=== PATIENT | male | born 1975 | race Asian ===

== ENCOUNTER 2016-05-04 06:36 | Inpatient (IN) | payer MEDICARE, MEDICAID ==
[~2016-05-04] VITALS: Ht 165.1 cm; Wt 88.0 kg
[~2016-05-04 06:36] MED LIST: LISI-662 PO; OLAN7.5T2 PO
[2016-05-04 07:07] LABS: BASOPHILS # (AUTO) 0.02 K/uL (0.00-0.20); BASOPHILS % (AUTO) 0.3 % (0.0-2.0); EOSINOPHILS # (AUTO) 0.06 K/uL (0.00-0.70); EOSINOPHILS % (AUTO) 0.75 % (1.0-6.0); HEMATOCRIT 42.7 % (41-53); HEMOGLOBIN 14.6 g/dL (13.5-17.5); LYMPHOCYTES # (AUTO) 1.6 K/uL (1.0-4.8); LYMPHOCYTES % (AUTO) 19.4 % (22.0-44.0); MEAN CORPUSCULAR HEMOGLOBIN 29.8 pg (26.0-34.0); MEAN CORPUSCULAR HGB CONC 34.1 G/dL (31.0-37.0); MEAN CORPUSCULAR VOLUME 88 fL (80-100); MONOCYTES # (AUTO) 0.4 K/uL (0.1-1.0); MONOCYTES % (AUTO) 5.3 % (2.0-9.0); NEUTROPHILS # (AUTO) 6.2 K/uL (1.8-7.7); NEUTROPHILS % (AUTO) 74.3 % (40.0-70.0); PLATELET COUNT (AUTO) 293 K/uL (150-450); RED BLOOD CELL COUNT(AUTO) 4.88 MIL/uL (4.50-5.90); WHITE BLOOD COUNT (AUTO) 8.3 K/uL (4.5-11.0)
[2016-05-04 07:16] LABS: ANION GAP 8 mmol/L (8-16); CALCIUM, TOTAL 9.1 mg/dL (8.8-10.5); CARBON DIOXIDE 30 mmol/L (22-29); CHLORIDE 100 mmol/L (98-107); CREATININE 0.66 mg/dL (0.60-1.30); GLOMERULAR FILTR. RATE CALC > 60 mL/min (>60); POTASSIUM 3.5 mmol/L (3.5-5.1); SODIUM SERUM 138 mmol/L (136-145); UREA NITROGEN, BLOOD 13 mg/dL (7-18)
[2016-05-04 07:21] LABS: ALANINE AMINOTRANSFERASE 38 U/L (12-78); ASPARTATE AMINOTRANSFERASE 20 U/L (15-37); BILIRUBIN,TOTAL 0.3 mg/dL (0.1-1.0); TOTAL PROTEIN, SERUM 7.8 g/dL (6.4-8.2)
[2016-05-04] MEDS ORDERED: LORazepam 2 MG TABLET PO PRN (07:45)
[2016-05-04] MEDS ORDERED: HALOPERIDOL 5 MG TABLET PO PRN (07:45)
[2016-05-04] MEDS ORDERED: ZOLPIDEM TARTRATE 10 MG TABLET PO PRN (07:45)
[2016-05-04] MEDS ORDERED: HALOPERIDOL 5 MG TABLET PO ONE (08:15)
[2016-05-04] MEDS ORDERED: LORazepam 2 MG TABLET PO ONE (08:15)
[2016-05-04 11:00] VITALS: BP 160/106
[2016-05-04 12:09] VITALS: BP 160/103
[2016-05-04 12:28] VITALS: BP 169/115
[2016-05-04] MEDS ORDERED: INFLUENZA VIRUS VACCINE QVS 2016-17 (3YR+)/PF 60 MCG/0.5 ML SYRINGE IM ONE (17:15)
[2016-05-04] MEDS ORDERED: MAG HYDROX/AL HYDROX/SIMETH ES 30 ML SUSPENSION UDCUP PO PRN (18:45)
[2016-05-04] MEDS ORDERED: ACETAMINOPHEN 325 MG TABLET PO PRN (18:45)
[2016-05-04] MEDS ORDERED: ONDANSETRON HCL 4 MG TABLET PO PRN (18:45)
[2016-05-04] MEDS ORDERED: BENZOCAINE/MENTHOL LOZENGE [8 LOZENGES/PACKET] MM PRN (18:45)
[2016-05-04] MEDS ORDERED: IBUPROFEN 600 MG TABLET PO PRN (18:45)
[2016-05-04] MEDS ORDERED: PETROLATUM,WHITE 71 GM JELLY TP PRN (18:45)
[2016-05-04] MEDS ORDERED: ALBUTEROL SULFATE HFA 90 MCG/PUFF 8 GM INHALER IH PRN (18:45)
[2016-05-04] MEDS ORDERED: MAGNESIUM HYDROXIDE SUSPENSION 30 ML UDCUP PO PRN (18:45)
[2016-05-04] MEDS ORDERED: LOPERAMIDE HCL 2 MG CAPSULE PO PRN (18:45)
[2016-05-04] MEDS ORDERED: BACITRACIN 28.4 GM OINTMENT TP PRN (18:45)
[2016-05-04] MEDS: LISINOPRIL 20 MG TABLET PO SCH (20:04)
[2016-05-04 20:07] VITALS: BP 142/88
[2016-05-05 06:12] VITALS: BP_SYST 152; BP_SYST 186; BP_DIAS 108; BP_DIAS 112
[2016-05-05] MEDS: CloNIDine HCL 0.1 MG TABLET PO PRN (06:16)
[2016-05-05 06:46] VITALS: BP 132/97
[2016-05-05 08:21] VITALS: BP 145/92
[2016-05-05] MEDS: CHOLECALCIFEROL (VIT D3) 1,000 UNITS TABLET PO SCH (08:46)
[2016-05-05] MEDS: LISINOPRIL 20 MG TABLET PO SCH (08:46)
[2016-05-05 17:15] VITALS: BP 122/88
[2016-05-05] MEDS: OLANZapine 7.5 MG TABLET PO SCH (21:04)
[2016-05-06 00:40] VITALS: BP 123/91
[2016-05-06] MEDS: CHOLECALCIFEROL (VIT D3) 1,000 UNITS TABLET PO SCH (09:04)
[2016-05-06] MEDS: LISINOPRIL 20 MG TABLET PO SCH (09:04)
[2016-05-06 09:09] VITALS: BP 132/83
[2016-05-06 17:00] VITALS: BP 154/112
[2016-05-06] MEDS: CloNIDine HCL 0.1 MG TABLET PO PRN (17:03)
[2016-05-06 18:05] VITALS: BP 121/80
[2016-05-06] MEDS: OLANZapine 7.5 MG TABLET PO SCH (21:04)
[2016-05-07 06:12] VITALS: BP 124/84
[2016-05-07 08:34] VITALS: BP 126/80
[2016-05-07] MEDS: CHOLECALCIFEROL (VIT D3) 1,000 UNITS TABLET PO SCH (08:59)
[2016-05-07] MEDS: LISINOPRIL 20 MG TABLET PO SCH (08:59)
[2016-05-07 16:47] VITALS: BP 122/83
[2016-05-07] MEDS: OLANZapine 7.5 MG TABLET PO SCH (20:03)
[2016-05-08 01:06] VITALS: BP 138/94
[2016-05-08 08:46] VITALS: BP 148/88
[2016-05-08] MEDS: LISINOPRIL 20 MG TABLET PO SCH (09:01)
[2016-05-08] MEDS: CHOLECALCIFEROL (VIT D3) 1,000 UNITS TABLET PO SCH (09:01)
[2016-05-08 16:22] VITALS: BP 112/71
[2016-05-08] MEDS: OLANZapine 7.5 MG TABLET PO SCH (20:28)
[2016-05-09 00:26] VITALS: BP 140/93
[2016-05-09 08:47] VITALS: BP 113/73
[2016-05-09] MEDS: LISINOPRIL 20 MG TABLET PO SCH (09:40)
[2016-05-09] MEDS: CHOLECALCIFEROL (VIT D3) 1,000 UNITS TABLET PO SCH (09:40)
[2016-05-09 17:35] VITALS: BP 124/92
[2016-05-09] MEDS: OLANZapine 7.5 MG TABLET PO SCH (21:02)
[2016-05-10 06:37] VITALS: BP 123/88
[2016-05-10 08:26] VITALS: BP 114/60
[2016-05-10] MEDS: LISINOPRIL 20 MG TABLET PO SCH (09:18)
[2016-05-10] MEDS: CHOLECALCIFEROL (VIT D3) 1,000 UNITS TABLET PO SCH (09:18)
[2016-05-10 16:15] VITALS: BP 133/78
[2016-05-10] MEDS: OLANZapine 7.5 MG TABLET PO SCH (20:59)
[2016-05-11 01:00] VITALS: BP 145/95
[2016-05-11 08:18] VITALS: BP 127/81
[2016-05-11] MEDS: LISINOPRIL 20 MG TABLET PO SCH (08:51)
[2016-05-11] MEDS: CHOLECALCIFEROL (VIT D3) 1,000 UNITS TABLET PO SCH (08:51)
[2016-05-11 16:16] VITALS: BP 123/84
[2016-05-11] MEDS: OLANZapine 7.5 MG TABLET PO SCH (20:39)
[2016-05-12 00:37] VITALS: BP 122/79
[2016-05-12 08:53] VITALS: BP 124/70
[2016-05-12] MEDS: LISINOPRIL 20 MG TABLET PO SCH (09:06)
[2016-05-12] MEDS: CHOLECALCIFEROL (VIT D3) 1,000 UNITS TABLET PO SCH (09:06)
[2016-05-12 16:25] VITALS: BP 126/84
[2016-05-12] MEDS: OLANZapine 7.5 MG TABLET PO SCH (20:30)
[2016-05-13 07:05] VITALS: BP 122/80
[2016-05-13] MEDS: LISINOPRIL 20 MG TABLET PO SCH (08:35)
[2016-05-13] MEDS: CHOLECALCIFEROL (VIT D3) 1,000 UNITS TABLET PO SCH (08:35)
[2016-05-13 09:03] VITALS: BP 119/73
[2016-05-13] MEDS ORDERED: VITAD1000 PO (11:35)
== END 2016-05-13 13:10 | disposition home or self-care (01) | DRG 885 ==
LOC: EMS 06:38 → AHU 09:59 → B2S 05-05 16:25
PROVIDERS: ADMIT Psychiatry & Neurology Psychiatry; ATTEND Psychiatry & Neurology Psychiatry
DX: F25.9 Schizoaffective disorder, unspecified (principal); R45.851 Suicidal ideations; F20.0 Paranoid schizophrenia; E03.9 Hypothyroidism, unspecified; E11.9 Type 2 diabetes mellitus without complications; E55.9 Vitamin D deficiency, unspecified; E66.9 Obesity, unspecified; E78.00 Pure hypercholesterolemia, unspecified; F15.10 Other stimulant abuse, uncomplicated; F17.210 Nicotine dependence, cigarettes, uncomplicated; G47.00 Insomnia, unspecified; G47.33 Obstructive sleep apnea (adult) (pediatric); I50.9 Heart failure, unspecified; I11.0 Hypertensive heart disease with heart failure; F31.9 Bipolar disorder, unspecified; K21.9 Gastro-esophageal reflux disease without esophagitis; K59.00 Constipation, unspecified; Z90.49 Acquired absence of other specified parts of digestive tract; Z88.5 Allergy status to narcotic agent; Z88.8 Allergy status to other drugs, medicaments and biological substances; Z91.02 Food additives allergy status; Z79.899 Other long term (current) drug therapy; Z71.6 Tobacco abuse counseling; Z28.29 Immunization not carried out because of patient decision for other reason; Z68.32 Body mass index [BMI] 32.0-32.9, adult
CPT/HCPCS: 87081; 99285; A0429; G0480

== ENCOUNTER 2016-09-02 12:06 | Inpatient (IN) | payer MEDICARE, MEDICAID ==
[~2016-09-02] VITALS: Ht 165.1 cm; Wt 89.5 kg
[~2016-09-02 12:06] MED LIST changes: +VITAD1000 PO
[2016-09-02 14:00] LABS: BASOPHILS # (AUTO) 0.03 K/uL (0.00-0.20); BASOPHILS % (AUTO) 0.6 % (0.0-2.0); EOSINOPHILS # (AUTO) 0.05 K/uL (0.00-0.70); EOSINOPHILS % (AUTO) 1.04 % (1.0-6.0); HEMATOCRIT 41.6 % (41-53); HEMOGLOBIN 13.5 g/dL (13.5-17.5); LYMPHOCYTES # (AUTO) 1.2 K/uL (1.0-4.8); LYMPHOCYTES % (AUTO) 22.7 % (22.0-44.0); MEAN CORPUSCULAR HEMOGLOBIN 29.8 pg (26.0-34.0); MEAN CORPUSCULAR HGB CONC 32.4 G/dL (31.0-37.0); MEAN CORPUSCULAR VOLUME 92 fL (80-100); MONOCYTES # (AUTO) 0.4 K/uL (0.1-1.0); MONOCYTES % (AUTO) 8.1 % (2.0-9.0); NEUTROPHILS # (AUTO) 3.5 K/uL (1.8-7.7); NEUTROPHILS % (AUTO) 67.5 % (40.0-70.0); PLATELET COUNT (AUTO) 210 K/uL (150-450); RED BLOOD CELL COUNT(AUTO) 4.53 MIL/uL (4.50-5.90); WHITE BLOOD COUNT (AUTO) 5.2 K/uL (4.5-11.0)
[2016-09-02 14:11] LABS: ANION GAP 4 mmol/L (8-16); CALCIUM, TOTAL 8.7 mg/dL (8.8-10.5); CARBON DIOXIDE 36 mmol/L (22-29); CHLORIDE 103 mmol/L (98-107); CREATININE 0.95 mg/dL (0.60-1.30); GLOMERULAR FILTR. RATE CALC > 60 mL/min (>60); POTASSIUM 3.6 mmol/L (3.5-5.1); SODIUM SERUM 143 mmol/L (136-145); UREA NITROGEN, BLOOD 15 mg/dL (7-18)
[2016-09-02 14:18] LABS: ALANINE AMINOTRANSFERASE 42 U/L (12-78); ALBUMIN 3.4 g/dL (3.4-5.0); ASPARTATE AMINOTRANSFERASE 23 U/L (15-37); BILIRUBIN,TOTAL 0.8 mg/dL (0.1-1.0); TOTAL PROTEIN, SERUM 6.6 g/dL (6.4-8.2)
[2016-09-02 14:19] LABS: B-TYPE NATRIURETIC PEPTIDE 2160 pg/mL (0-100)
[2016-09-02] MEDS ORDERED: FUROSEMIDE 40 MG/4 ML VIAL IVP ONE (15:30)
[2016-09-02] MEDS ORDERED: ONDANSETRON HCL 4 MG/2 ML VIAL IVP PRN (18:15)
[2016-09-02] MEDS ORDERED: ACETAMINOPHEN 325 MG TABLET PO PRN (18:15)
[2016-09-02 21:46] VITALS: BP 146/100
[2016-09-02] MEDS ORDERED: HydrALAZINE HCL 10 MG TABLET PO PRN (22:45)
[2016-09-02] MEDS ORDERED: OLANZapine 7.5 MG TABLET PO SCH (22:45)
[2016-09-02 23:07] VITALS: BP 141/105
[2016-09-03] MEDS ORDERED: 0.9% SODIUM CHLORIDE 10 ML SYRINGE IVP PRN (03:15)
[2016-09-03] MEDS ORDERED: ONDANSETRON HCL 4 MG/2 ML VIAL IVP PRN (03:15)
[2016-09-03] MEDS ORDERED: MAGNESIUM HYDROXIDE SUSPENSION 30 ML UDCUP PO PRN (03:15)
[2016-09-03] MEDS ORDERED: ACETAMINOPHEN 325 MG TABLET PO PRN (03:15)
[2016-09-03] MEDS: FUROSEMIDE 40 MG/4 ML VIAL IVP SCH ×2 (04:08→08:42)
[2016-09-03 04:10] VITALS: BP 134/99
[2016-09-03 07:38] LABS: BASOPHILS % (AUTO) 0.6 % (0.0-2.0); EOSINOPHILS % (AUTO) 1.9 % (1.0-6.0); HEMATOCRIT 42.4 % (41-53); HEMOGLOBIN 13.5 g/dL (13.5-17.5); LYMPHOCYTES # (AUTO) 1.5 K/uL (1.0-4.8); LYMPHOCYTES % (AUTO) 27.1 % (22.0-44.0); MEAN CORPUSCULAR HEMOGLOBIN 29.3 pg (26.0-34.0); MEAN CORPUSCULAR HGB CONC 31.8 G/dL (31.0-37.0); MEAN CORPUSCULAR VOLUME 92 fL (80-100); MONOCYTES # (AUTO) 0.4 K/uL (0.1-1.0); NEUTROPHILS # (AUTO) 3.6 K/uL (1.8-7.7); NEUTROPHILS % (AUTO) 63.4 % (40.0-70.0); PLATELET COUNT (AUTO) 207 K/uL (150-450); RED BLOOD CELL COUNT(AUTO) 4.61 MIL/uL (4.50-5.90); RED CELL DISTRIBUTION WIDTH 16.5 % (11.5-14.5); WHITE BLOOD COUNT (AUTO) 5.7 K/uL (4.5-11.0)
[2016-09-03 07:51] VITALS: BP 137/99
[2016-09-03 07:59] LABS: ALANINE AMINOTRANSFERASE 41 U/L (12-78); ALBUMIN 3.3 g/dL (3.4-5.0); ANION GAP 3 mmol/L (8-16); ASPARTATE AMINOTRANSFERASE 22 U/L (15-37); CALCIUM, TOTAL 8.6 mg/dL (8.8-10.5); CARBON DIOXIDE 37 mmol/L (22-29); CHLORIDE 102 mmol/L (98-107); CREATININE 0.86 mg/dL (0.60-1.30); GLOMERULAR FILTR. RATE CALC > 60 mL/min (>60); POTASSIUM 3.1 mmol/L (3.5-5.1); SODIUM SERUM 142 mmol/L (136-145); TOTAL PROTEIN, SERUM 6.4 g/dL (6.4-8.2); UREA NITROGEN, BLOOD 14 mg/dL (7-18)
[2016-09-03] MEDS ORDERED: DOCUSATE SODIUM 100 MG CAPSULE PO SCH (09:00)
[2016-09-03] MEDS ORDERED: CHOLECALCIFEROL (VIT D3) 1,000 UNITS TABLET PO SCH (09:00)
[2016-09-03] MEDS ORDERED: LISINOPRIL 20 MG TABLET PO SCH ×2 (09:00)
[2016-09-03] MEDS ORDERED: PANTOPRAZOLE SODIUM 40 MG/VIAL IVP SCH (09:00)
[2016-09-03] MEDS ORDERED: POTASSIUM CHLORIDE 20 MEQ ER TABLET PO PRN ×2 (09:45)
[2016-09-03] MEDS ORDERED: POTASSIUM CHL 10 MEQ/WATER 50 ML IV PRN (09:45)
[2016-09-03 11:09] VITALS: BP 139/86
[2016-09-03] MEDS ORDERED: CARVEDILOL 6.25 MG TABLET PO SCH (12:30)
[2016-09-03 15:21] VITALS: BP 113/75
[2016-09-03] MEDS ORDERED: FURO-151 PO (18:00)
[2016-09-03] MEDS ORDERED: POTA99TA15 PO (18:02)
[2016-09-03] MEDS ORDERED: CARV6.2579 PO (18:02)
[2016-09-03] MEDS ORDERED: POTA25TA7 PO (18:05)
[2016-09-03] MEDS ORDERED: OLANZapine 7.5 MG TABLET PO SCH (21:00)
== END 2016-09-03 18:50 | disposition home or self-care (01) | DRG 293 ==
LOC: EMS 12:10 → 5S 20:23
PROVIDERS: ADMIT Hospitalist; ATTEND Hospitalist
DX: I11.0 Hypertensive heart disease with heart failure (principal); I50.23 Acute on chronic systolic (congestive) heart failure; F20.9 Schizophrenia, unspecified; E03.9 Hypothyroidism, unspecified; E78.00 Pure hypercholesterolemia, unspecified; E87.6 Hypokalemia; F17.210 Nicotine dependence, cigarettes, uncomplicated; F15.10 Other stimulant abuse, uncomplicated; E78.5 Hyperlipidemia, unspecified; F25.9 Schizoaffective disorder, unspecified; F22 Delusional disorders; F31.9 Bipolar disorder, unspecified; Z79.899 Other long term (current) drug therapy; Z91.19 Patient's noncompliance with other medical treatment and regimen; Z88.5 Allergy status to narcotic agent; Z88.8 Allergy status to other drugs, medicaments and biological substances; Z91.018 Allergy to other foods
CPT/HCPCS: 80307; 93005; 93306; 96374; 99285; C9113; J1940

== ENCOUNTER 2016-10-09 10:31 | Inpatient (IN) | payer MEDICARE, MEDICAID ==
[~2016-10-09] VITALS: Ht 165.1 cm; Wt 85.0 kg
[~2016-10-09 10:31] MED LIST changes: +CARV6.2579 PO; +FURO-151 PO; +POTA25TA7 PO
[2016-10-09 11:18] LABS: BASOPHILS % (AUTO) 0.2 % (0.0-2.0); EOSINOPHILS % (AUTO) 0.4 % (1.0-6.0); HEMATOCRIT 40.1 % (41-53); HEMOGLOBIN 13.4 g/dL (13.5-17.5); LYMPHOCYTES # (AUTO) 0.6 K/uL (1.0-4.8); LYMPHOCYTES % (AUTO) 7.2 % (22.0-44.0); MEAN CORPUSCULAR HEMOGLOBIN 30.5 pg (26.0-34.0); MEAN CORPUSCULAR HGB CONC 33.4 G/dL (31.0-37.0); MEAN CORPUSCULAR VOLUME 91 fL (80-100); MONOCYTES # (AUTO) 0.4 K/uL (0.1-1.0); MONOCYTES % (AUTO) 4.8 % (2.0-9.0); NEUTROPHILS # (AUTO) 7.6 K/uL (1.8-7.7); NEUTROPHILS % (AUTO) 87.4 % (40.0-70.0); PLATELET COUNT (AUTO) 182 K/uL (150-450); RED BLOOD CELL COUNT(AUTO) 4.39 MIL/uL (4.50-5.90); RED CELL DISTRIBUTION WIDTH 15.8 % (11.5-14.5); WHITE BLOOD COUNT (AUTO) 8.7 K/uL (4.5-11.0)
[2016-10-09 11:51] LABS: B-TYPE NATRIURETIC PEPTIDE 2410 pg/mL (0-100)
[2016-10-09 11:58] LABS: ALANINE AMINOTRANSFERASE 28 U/L (12-78); ALBUMIN 3.5 g/dL (3.4-5.0); ANION GAP 6 mmol/L (8-16); ASPARTATE AMINOTRANSFERASE 18 U/L (15-37); BILIRUBIN,TOTAL 1.1 mg/dL (0.1-1.0); CALCIUM, TOTAL 8.3 mg/dL (8.8-10.5); CARBON DIOXIDE 34 mmol/L (22-29); CHLORIDE 102 mmol/L (98-107); CREATINE KINASE MB 0.9 ng/mL (0-5); CREATINE KINASE, TOTAL 107 U/L (39-308); CREATININE 0.95 mg/dL (0.60-1.30); GLOMERULAR FILTR. RATE CALC > 60 mL/min (>60); POTASSIUM 3.2 mmol/L (3.5-5.1); SODIUM SERUM 142 mmol/L (136-145); TOTAL PROTEIN, SERUM 6.7 g/dL (6.4-8.2)
[2016-10-09 12:12] LABS: UREA NITROGEN, BLOOD 14 mg/dL (7-18)
[2016-10-09] MEDS ORDERED: FUROSEMIDE 40 MG/4 ML VIAL IVP ONE (12:30)
[2016-10-09] MEDS ORDERED: ASPIRIN 81 MG CHEWABLE TABLET PO ONE (12:30)
[2016-10-09] MEDS ORDERED: ACETAMINOPHEN 325 MG TABLET PO PRN ×2 (13:30→18:00)
[2016-10-09 16:00] VITALS: BP 156/101
[2016-10-09 17:30] VITALS: BP 156/112
[2016-10-09] MEDS ORDERED: ZOLPIDEM TARTRATE 10 MG TABLET PO PRN (18:00)
[2016-10-09] MEDS ORDERED: MORPHINE SULFATE 2 MG/ML SYRINGE IVP PRN (18:00)
[2016-10-09] MEDS ORDERED: ONDANSETRON HCL 4 MG/2 ML VIAL IVP PRN (18:00)
[2016-10-09] MEDS ORDERED: MAGNESIUM HYDROXIDE SUSPENSION 30 ML UDCUP PO PRN (18:00)
[2016-10-09] MEDS: NITROGLYCERIN 2% (1 GM=INCH) PACKET TP SCH ×2 (18:32→23:44)
[2016-10-09] MEDS: POTASSIUM CHLORIDE 20 MEQ ER TABLET PO PRN (19:05)
[2016-10-09 19:59] VITALS: BP 148/92
[2016-10-09] MEDS: FUROSEMIDE 40 MG/4 ML VIAL IVP SCH (20:56)
[2016-10-09] MEDS: OLANZapine 7.5 MG TABLET PO SCH (20:56)
[2016-10-09] MEDS: DOCUSATE SODIUM 100 MG CAPSULE PO SCH (20:56)
[2016-10-09] MEDS ORDERED: CARVEDILOL 6.25 MG TABLET PO SCH (21:00)
[2016-10-09 23:54] VITALS: BP 149/79
[2016-10-10] MEDS: POTASSIUM CHLORIDE 20 MEQ ER TABLET PO PRN (00:15)
[2016-10-10 04:33] VITALS: BP 142/81
[2016-10-10] MEDS: NITROGLYCERIN 2% (1 GM=INCH) PACKET TP SCH ×3 (05:56→17:07)
[2016-10-10 07:15] VITALS: BP 140/87
[2016-10-10 08:58] LABS: CHOL/HDL RATIO 1.7 (4.2-7.3); POTASSIUM 3.5 mmol/L (3.5-5.1)
[2016-10-10] MEDS ORDERED: LISINOPRIL 20 MG TABLET PO SCH (09:00)
[2016-10-10] MEDS: FUROSEMIDE 40 MG/4 ML VIAL IVP SCH ×2 (09:08→20:51)
[2016-10-10] MEDS: ASPIRIN 81 MG CHEWABLE TABLET PO SCH (09:08)
[2016-10-10] MEDS: PANTOPRAZOLE SODIUM 40 MG/VIAL IVP SCH (09:08)
[2016-10-10] MEDS: CARVEDILOL 12.5 MG TABLET PO SCH ×2 (09:09→21:00)
[2016-10-10] MEDS: LISINOPRIL 20 MG TABLET PO SCH (09:09)
[2016-10-10] MEDS: CHOLECALCIFEROL (VIT D3) 1,000 UNITS TABLET PO SCH (09:09)
[2016-10-10] MEDS: DOCUSATE SODIUM 100 MG CAPSULE PO SCH ×2 (09:09→20:53)
[2016-10-10] MEDS: ISOSORBIDE MONONITRATE 30 MG ER TABLET PO SCH (09:09)
[2016-10-10] MEDS: IPRATROPIUM BROMIDE 0.5 MG/2.5 ML NEB SOLUTION NEB PRN ×2 (10:03→16:31)
[2016-10-10 11:19] VITALS: BP 121/75
[2016-10-10] MEDS: OXYGEN THERAPY IH SCH ×3 (12:18→20:51)
[2016-10-10 15:04] VITALS: BP 112/75
[2016-10-10] MEDS ORDERED: POTASSIUM CHLORIDE 20 MEQ ER TABLET PO ONE (19:15)
[2016-10-10 19:24] VITALS: BP 119/55
[2016-10-10] MEDS: OLANZapine 7.5 MG TABLET PO SCH (20:51)
[2016-10-11] VITALS (7 sets, daily range): BP systolic 100–143; BP diastolic 52–80
[2016-10-11] MEDS: MethylPREDNISolone SOD SUCC 125 MG/2 ML VIAL IVP SCH ×4 (00:45→18:04)
[2016-10-11] MEDS: NITROGLYCERIN 2% (1 GM=INCH) PACKET TP SCH ×4 (00:45→18:04)
[2016-10-11] MEDS: GuaiFENesin/D-METHORPHAN [SUGAR-FREE] 200-20MG/10 ML SYRUP UDCUP PO PRN ×3 (00:53→21:05)
[2016-10-11 06:47] LABS: EOSINOPHILS % (AUTO) 0.3 % (1.0-6.0); HEMATOCRIT 41.5 % (41-53); HEMOGLOBIN 13.8 g/dL (13.5-17.5); LYMPHOCYTES # (AUTO) 0.3 K/uL (1.0-4.8); LYMPHOCYTES % (AUTO) 5.9 % (22.0-44.0); MEAN CORPUSCULAR HEMOGLOBIN 30.5 pg (26.0-34.0); MEAN CORPUSCULAR HGB CONC 33.2 G/dL (31.0-37.0); MEAN CORPUSCULAR VOLUME 92 fL (80-100); MONOCYTES # (AUTO) 0.1 K/uL (0.1-1.0); MONOCYTES % (AUTO) 1.8 % (2.0-9.0); NEUTROPHILS # (AUTO) 5.3 K/uL (1.8-7.7); PLATELET COUNT (AUTO) 165 K/uL (150-450); RED BLOOD CELL COUNT(AUTO) 4.52 MIL/uL (4.50-5.90); RED CELL DISTRIBUTION WIDTH 15.4 % (11.5-14.5); WHITE BLOOD COUNT (AUTO) 5.8 K/uL (4.5-11.0)
[2016-10-11 07:03] LABS: RBC MORPHOLOGY COMMENT NORMAL RBC MORPH
[2016-10-11 07:21] LABS: ALANINE AMINOTRANSFERASE 22 U/L (12-78); ANION GAP 5 mmol/L (8-16); ASPARTATE AMINOTRANSFERASE 19 U/L (15-37); BILIRUBIN,TOTAL 0.8 mg/dL (0.1-1.0); CALCIUM, TOTAL 8.2 mg/dL (8.8-10.5); CARBON DIOXIDE 36 mmol/L (22-29); CHLORIDE 101 mmol/L (98-107); CREATININE 0.69 mg/dL (0.60-1.30); GLOMERULAR FILTR. RATE CALC > 60 mL/min (>60); POTASSIUM 4.1 mmol/L (3.5-5.1); SODIUM SERUM 142 mmol/L (136-145); TOTAL PROTEIN, SERUM 6.6 g/dL (6.4-8.2); UREA NITROGEN, BLOOD 13 mg/dL (7-18)
[2016-10-11] MEDS: OXYGEN THERAPY IH SCH ×4 (08:16→21:03)
[2016-10-11] MEDS: LISINOPRIL 20 MG TABLET PO SCH (08:24)
[2016-10-11] MEDS: CARVEDILOL 12.5 MG TABLET PO SCH ×2 (08:24→21:04)
[2016-10-11] MEDS: PANTOPRAZOLE SODIUM 40 MG/VIAL IVP SCH (08:24)
[2016-10-11] MEDS: FUROSEMIDE 40 MG/4 ML VIAL IVP SCH ×2 (08:24→21:04)
[2016-10-11] MEDS: CHOLECALCIFEROL (VIT D3) 1,000 UNITS TABLET PO SCH (08:24)
[2016-10-11] MEDS: ISOSORBIDE MONONITRATE 30 MG ER TABLET PO SCH (08:25)
[2016-10-11] MEDS: DOCUSATE SODIUM 100 MG CAPSULE PO SCH ×2 (08:25→21:04)
[2016-10-11] MEDS: ASPIRIN 81 MG CHEWABLE TABLET PO SCH (08:25)
[2016-10-11] MEDS: OLANZapine 7.5 MG TABLET PO SCH (21:04)
[2016-10-12] MEDS: NITROGLYCERIN 2% (1 GM=INCH) PACKET TP SCH ×5 (00:48→23:59)
[2016-10-12] MEDS: MethylPREDNISolone SOD SUCC 125 MG/2 ML VIAL IVP SCH ×5 (00:48→23:59)
[2016-10-12] MEDS: GuaiFENesin/D-METHORPHAN [SUGAR-FREE] 200-20MG/10 ML SYRUP UDCUP PO PRN ×4 (00:50→18:11)
[2016-10-12 04:50] VITALS: BP 141/87
[2016-10-12 07:29] VITALS: BP 142/86
[2016-10-12] MEDS: PANTOPRAZOLE SODIUM 40 MG/VIAL IVP SCH (09:10)
[2016-10-12] MEDS: FUROSEMIDE 40 MG/4 ML VIAL IVP SCH ×2 (09:11→21:39)
[2016-10-12] MEDS: CARVEDILOL 12.5 MG TABLET PO SCH ×2 (09:12→23:58)
[2016-10-12] MEDS: LISINOPRIL 20 MG TABLET PO SCH (09:12)
[2016-10-12] MEDS: DOCUSATE SODIUM 100 MG CAPSULE PO SCH ×2 (09:12→21:38)
[2016-10-12] MEDS: CHOLECALCIFEROL (VIT D3) 1,000 UNITS TABLET PO SCH (09:12)
[2016-10-12] MEDS: ASPIRIN 81 MG CHEWABLE TABLET PO SCH (09:12)
[2016-10-12] MEDS: ISOSORBIDE MONONITRATE 30 MG ER TABLET PO SCH (09:13)
[2016-10-12 11:36] VITALS: BP 128/68
[2016-10-12 15:46] VITALS: BP 129/77
[2016-10-12 19:43] VITALS: BP 140/81
[2016-10-12] MEDS: OXYGEN THERAPY IH SCH (20:00)
[2016-10-12] MEDS: OLANZapine 7.5 MG TABLET PO SCH (21:38)
[2016-10-12 23:38] VITALS: BP 131/77
[2016-10-13] MEDS: OXYGEN THERAPY IH SCH ×2 (01:47→08:00)
[2016-10-13 04:46] VITALS: BP 128/71
[2016-10-13] MEDS: MethylPREDNISolone SOD SUCC 125 MG/2 ML VIAL IVP SCH ×4 (05:35→23:33)
[2016-10-13] MEDS: NITROGLYCERIN 2% (1 GM=INCH) PACKET TP SCH ×4 (05:35→23:33)
[2016-10-13 07:08] VITALS: BP 140/84
[2016-10-13] MEDS: PANTOPRAZOLE SODIUM 40 MG/VIAL IVP SCH (09:44)
[2016-10-13] MEDS: FUROSEMIDE 40 MG/4 ML VIAL IVP SCH ×2 (09:44→20:48)
[2016-10-13] MEDS: CARVEDILOL 12.5 MG TABLET PO SCH ×2 (09:45→20:48)
[2016-10-13] MEDS: ASPIRIN 81 MG CHEWABLE TABLET PO SCH (09:45)
[2016-10-13] MEDS: DOCUSATE SODIUM 100 MG CAPSULE PO SCH ×2 (09:45→20:48)
[2016-10-13] MEDS: LISINOPRIL 20 MG TABLET PO SCH (09:46)
[2016-10-13] MEDS: CHOLECALCIFEROL (VIT D3) 1,000 UNITS TABLET PO SCH (09:46)
[2016-10-13] MEDS: ISOSORBIDE MONONITRATE 30 MG ER TABLET PO SCH (09:46)
[2016-10-13 11:38] VITALS: BP 142/81
[2016-10-13 16:09] VITALS: BP 120/78
[2016-10-13 19:58] VITALS: BP 121/80
[2016-10-13] MEDS: OLANZapine 7.5 MG TABLET PO SCH (20:48)
[2016-10-13] MEDS: GuaiFENesin/D-METHORPHAN [SUGAR-FREE] 200-20MG/10 ML SYRUP UDCUP PO PRN (20:48)
[2016-10-13 23:25] VITALS: BP 122/67
[2016-10-14 04:55] VITALS: BP 137/83
[2016-10-14] MEDS: MethylPREDNISolone SOD SUCC 125 MG/2 ML VIAL IVP SCH ×3 (05:04→18:09)
[2016-10-14] MEDS: NITROGLYCERIN 2% (1 GM=INCH) PACKET TP SCH ×3 (05:04→18:09)
[2016-10-14 07:22] VITALS: BP 146/94
[2016-10-14] MEDS: DOCUSATE SODIUM 100 MG CAPSULE PO SCH ×2 (08:16→20:39)
[2016-10-14] MEDS: ISOSORBIDE MONONITRATE 30 MG ER TABLET PO SCH (08:16)
[2016-10-14] MEDS: ASPIRIN 81 MG CHEWABLE TABLET PO SCH (08:16)
[2016-10-14] MEDS: LISINOPRIL 20 MG TABLET PO SCH (08:16)
[2016-10-14] MEDS: FUROSEMIDE 40 MG/4 ML VIAL IVP SCH ×2 (08:17→20:40)
[2016-10-14] MEDS: PANTOPRAZOLE SODIUM 40 MG/VIAL IVP SCH (08:17)
[2016-10-14] MEDS: CHOLECALCIFEROL (VIT D3) 1,000 UNITS TABLET PO SCH (08:17)
[2016-10-14] MEDS: OXYGEN THERAPY IH SCH ×2 (08:23→23:03)
[2016-10-14] MEDS: CARVEDILOL 12.5 MG TABLET PO SCH ×2 (10:29→20:38)
[2016-10-14 11:23] VITALS: BP 126/70
[2016-10-14 15:01] VITALS: BP 108/69
[2016-10-14 20:08] VITALS: BP 129/73
[2016-10-14] MEDS: OLANZapine 7.5 MG TABLET PO SCH (20:39)
[2016-10-14 23:20] VITALS: BP 132/76
[2016-10-15] MEDS: MethylPREDNISolone SOD SUCC 125 MG/2 ML VIAL IVP SCH ×3 (00:25→11:37)
[2016-10-15] MEDS: NITROGLYCERIN 2% (1 GM=INCH) PACKET TP SCH ×4 (00:25→17:59)
[2016-10-15 05:26] VITALS: BP 142/83
[2016-10-15] MEDS: OXYGEN THERAPY IH SCH ×4 (05:34→08:23)
[2016-10-15 07:17] VITALS: BP 131/72
[2016-10-15] MEDS: FUROSEMIDE 40 MG/4 ML VIAL IVP SCH (08:24)
[2016-10-15] MEDS: CHOLECALCIFEROL (VIT D3) 1,000 UNITS TABLET PO SCH (08:24)
[2016-10-15] MEDS: ISOSORBIDE MONONITRATE 30 MG ER TABLET PO SCH (08:24)
[2016-10-15] MEDS: PANTOPRAZOLE SODIUM 40 MG/VIAL IVP SCH (08:24)
[2016-10-15] MEDS: LISINOPRIL 20 MG TABLET PO SCH (08:24)
[2016-10-15] MEDS: DOCUSATE SODIUM 100 MG CAPSULE PO SCH (08:25)
[2016-10-15] MEDS: ASPIRIN 81 MG CHEWABLE TABLET PO SCH (08:25)
[2016-10-15] MEDS: CARVEDILOL 12.5 MG TABLET PO SCH (08:25)
[2016-10-15 11:15] VITALS: BP 112/75
[2016-10-15 15:33] VITALS: BP 115/72
[2016-10-15] MEDS ORDERED: PredniSONE 20 MG TABLET PO ONE (18:00)
[2016-10-15] MEDS ORDERED: CARV12 PO (18:09)
[2016-10-15] MEDS ORDERED: ASPI81 PO (18:09)
[2016-10-15] MEDS ORDERED: ISOS20TA9 PO (18:11)
[2016-10-15] MEDS ORDERED: DSS100 PO (18:14)
== END 2016-10-15 19:30 | disposition home or self-care (01) | DRG 292 ==
LOC: EMS 10:34 → 5S 13:31
PROVIDERS: ADMIT Hospitalist; ATTEND Hospitalist
DX: I11.0 Hypertensive heart disease with heart failure (principal); J98.11 Atelectasis; I50.23 Acute on chronic systolic (congestive) heart failure; F20.9 Schizophrenia, unspecified; E03.9 Hypothyroidism, unspecified; E87.6 Hypokalemia; E78.00 Pure hypercholesterolemia, unspecified; F31.9 Bipolar disorder, unspecified; F17.210 Nicotine dependence, cigarettes, uncomplicated; F15.10 Other stimulant abuse, uncomplicated; R74.8 Abnormal levels of other serum enzymes; E78.5 Hyperlipidemia, unspecified; Z91.19 Patient's noncompliance with other medical treatment and regimen; Z88.5 Allergy status to narcotic agent; Z88.8 Allergy status to other drugs, medicaments and biological substances; Z79.899 Other long term (current) drug therapy; Z91.018 Allergy to other foods
CPT/HCPCS: 83735; 84132; 93005; 93306; 94640; 96374; 99285; C9113; J1940; J2930

== ENCOUNTER 2016-11-19 17:41 | Emergency (ER) | payer MEDICARE, MEDICAID ==
[~2016-11-19 17:41] MED LIST changes: +ASPI81 PO; +CARV12 PO; -CARV6.2579 PO; +DSS100 PO; +ISOS20TA9 PO
== END 2016-11-19 19:16 | disposition left against medical advice (07) ==
LOC: EMS 17:43
DX: Z00.00 Encounter for general adult medical examination without abnormal findings (principal); Z53.21 Procedure and treatment not carried out due to patient leaving prior to being seen by health care provider

== ENCOUNTER 2017-07-01 06:46 | Inpatient (IN) | payer MEDICARE, MEDICAID ==
[~2017-07-01] VITALS: Ht 167.6 cm; Wt 94.0 kg
[2017-07-01 08:02] LABS: BASOPHILS % (AUTO) 0.7 % (0.0-2.0); EOSINOPHILS % (AUTO) 0.7 % (1.0-6.0); HEMATOCRIT 41.6 % (41-53); HEMOGLOBIN 14.3 g/dL (13.5-17.5); LYMPHOCYTES # (AUTO) 0.6 K/uL (1.0-4.8); LYMPHOCYTES % (AUTO) 11.4 % (22.0-44.0); MEAN CORPUSCULAR HEMOGLOBIN 31.6 pg (26.0-34.0); MEAN CORPUSCULAR HGB CONC 34.3 G/dL (31.0-37.0); MEAN CORPUSCULAR VOLUME 92 fL (80-100); MONOCYTES # (AUTO) 0.4 K/uL (0.1-1.0); MONOCYTES % (AUTO) 7.9 % (2.0-9.0); NEUTROPHILS # (AUTO) 4.3 K/uL (1.8-7.7); NEUTROPHILS % (AUTO) 79.3 % (40.0-70.0); PLATELET COUNT (AUTO) 186 K/uL (150-450); RED BLOOD CELL COUNT(AUTO) 4.52 MIL/uL (4.50-5.90); RED CELL DISTRIBUTION WIDTH 14.3 % (11.5-14.5)
[2017-07-01 08:12] LABS: ANION GAP 4 mmol/L (8-16); CALCIUM, TOTAL 8.5 mg/dL (8.8-10.5); CARBON DIOXIDE 30 mmol/L (22-29); CHLORIDE 105 mmol/L (98-107); CREATININE 0.65 mg/dL (0.60-1.30); GLOMERULAR FILTR. RATE CALC > 60 mL/min (>60); GLUCOSE,RANDOM 140 mg/dL (70-110); SODIUM SERUM 139 mmol/L (136-145); UREA NITROGEN, BLOOD 14 mg/dL (7-18)
[2017-07-01 08:18] LABS: ALANINE AMINOTRANSFERASE 37 U/L (12-78); ALBUMIN 3.3 g/dL (3.4-5.0); ALKALINE PHOSPHATASE 84 U/L (46-116); ASPARTATE AMINOTRANSFERASE 30 U/L (15-37); BILIRUBIN,TOTAL 1.1 mg/dL (0.1-1.0); TOTAL PROTEIN, SERUM 6.1 g/dL (6.4-8.2)
[2017-07-01] MEDS ORDERED: LORazepam 2 MG TABLET PO PRN (09:15)
[2017-07-01] MEDS ORDERED: ZOLPIDEM TARTRATE 10 MG TABLET PO PRN (09:15)
[2017-07-01] MEDS ORDERED: HALOPERIDOL 5 MG TABLET PO PRN (09:15)
[2017-07-01 09:45] LABS: CHOL/HDL RATIO 1.8 (4.2-7.3); CHOLESTEROL 144 mg/dL (131-200); HDL CHOLESTEROL 78 mg/dL (40-60); TRIGLYCERIDES 27 mg/dL (15-150)
[2017-07-01 09:46] LABS: FREE T4 (FREE THYROXINE) 1.12 ng/dL (0.76-1.46); LDL CHOL (CALC.) 61 mg/dL (0-130); THYROID STIMULATING HORMONE 1.23 uIU/mL (0.36-3.74)
[2017-07-01 14:00] VITALS: BP 133/80
[2017-07-01 20:18] VITALS: BP 119/69
[2017-07-01 22:32] VITALS: BP 125/99
[2017-07-02] MEDS ORDERED: MAGNESIUM HYDROXIDE SUSPENSION 30 ML UDCUP PO PRN (08:45)
[2017-07-02] MEDS ORDERED: LOPERAMIDE HCL 2 MG CAPSULE PO PRN (08:45)
[2017-07-02] MEDS ORDERED: BENZOCAINE/MENTHOL LOZENGE MM PRN (08:45)
[2017-07-02] MEDS ORDERED: PETROLATUM,WHITE 71 GM JELLY TP PRN (08:45)
[2017-07-02] MEDS ORDERED: ALBUTEROL SULFATE HFA 90 MCG/PUFF 8 GM INHALER IH PRN (08:45)
[2017-07-02] MEDS ORDERED: ACETAMINOPHEN 325 MG TABLET PO PRN (08:45)
[2017-07-02] MEDS ORDERED: CloNIDine HCL 0.1 MG TABLET PO PRN (08:45)
[2017-07-02] MEDS ORDERED: MAG HYDROX/AL HYDROX/SIMETH ES 30 ML SUSPENSION UDCUP PO PRN (08:45)
[2017-07-02] MEDS ORDERED: IBUPROFEN 600 MG TABLET PO PRN (08:45)
[2017-07-02] MEDS ORDERED: BACITRACIN 28.4 GM OINTMENT TP PRN (08:45)
[2017-07-02] MEDS ORDERED: ONDANSETRON HCL 4 MG TABLET PO PRN (08:45)
[2017-07-02 08:59] VITALS: BP 154/67
[2017-07-02] MEDS ORDERED: [UNRECOGNIZED DRUG - OTHER] PO SCH (09:00)
[2017-07-02] MEDS ORDERED: CITRIC ACID PO SCH (09:00)
[2017-07-02] MEDS: NICOTINE 21 MG/24 HOUR PATCH TD SCH (09:00)
[2017-07-02] MEDS ORDERED: POTASSIUM BICARBONATE PO SCH (09:00)
[2017-07-02] MEDS ORDERED: BENZOCAINE/MENTHOL LOZENGE [8 LOZENGES/PACKET] MM PRN (09:02)
[2017-07-02] MEDS: ASPIRIN 81 MG CHEWABLE TABLET PO SCH (11:48)
[2017-07-02] MEDS: DOCUSATE SODIUM 100 MG CAPSULE PO SCH (11:48)
[2017-07-02] MEDS: FUROSEMIDE 40 MG TABLET PO SCH (11:49)
[2017-07-02] MEDS: ISOSORBIDE DINITRATE 20 MG TABLET PO SCH (11:49)
[2017-07-02] MEDS: CHOLECALCIFEROL (VIT D3) 1,000 UNITS TABLET PO SCH (11:49)
[2017-07-02] MEDS: OMEPRAZOLE 20 MG CAPSULE PO SCH (11:49)
[2017-07-02] MEDS: CARVEDILOL 12.5 MG TABLET PO SCH ×2 (11:50→16:17)
[2017-07-02] MEDS: LISINOPRIL 20 MG TABLET PO SCH (11:54)
[2017-07-03 05:57] VITALS: BP 153/110
[2017-07-03 08:10] VITALS: BP 156/98
[2017-07-03] MEDS: CHOLECALCIFEROL (VIT D3) 1,000 UNITS TABLET PO SCH (08:47)
[2017-07-03] MEDS: ASPIRIN 81 MG CHEWABLE TABLET PO SCH (08:47)
[2017-07-03] MEDS: DOCUSATE SODIUM 100 MG CAPSULE PO SCH (08:47)
[2017-07-03] MEDS: LISINOPRIL 20 MG TABLET PO SCH (08:47)
[2017-07-03] MEDS: OMEPRAZOLE 20 MG CAPSULE PO SCH (08:47)
[2017-07-03] MEDS: CARVEDILOL 12.5 MG TABLET PO SCH ×2 (08:48→16:20)
[2017-07-03] MEDS: ISOSORBIDE DINITRATE 20 MG TABLET PO SCH (08:48)
[2017-07-03] MEDS: FUROSEMIDE 40 MG TABLET PO SCH (08:48)
[2017-07-03] MEDS: NICOTINE 21 MG/24 HOUR PATCH TD SCH (08:54)
[2017-07-03 14:05] VITALS: BP 148/96
[2017-07-03 16:14] VITALS: BP 142/94
[2017-07-03] MEDS: OLANZapine 7.5 MG TABLET PO SCH (20:18)
[2017-07-04 08:00] VITALS: BP 127/88
[2017-07-04] MEDS: ISOSORBIDE DINITRATE 20 MG TABLET PO SCH (08:01)
[2017-07-04] MEDS: CARVEDILOL 12.5 MG TABLET PO SCH ×2 (08:01→16:47)
[2017-07-04] MEDS: LISINOPRIL 20 MG TABLET PO SCH (08:01)
[2017-07-04] MEDS: ASPIRIN 81 MG CHEWABLE TABLET PO SCH (08:01)
[2017-07-04] MEDS: CHOLECALCIFEROL (VIT D3) 1,000 UNITS TABLET PO SCH (08:01)
[2017-07-04] MEDS: DOCUSATE SODIUM 100 MG CAPSULE PO SCH (08:02)
[2017-07-04] MEDS: FUROSEMIDE 40 MG TABLET PO SCH (08:02)
[2017-07-04] MEDS: OMEPRAZOLE 20 MG CAPSULE PO SCH (08:02)
[2017-07-04] MEDS: NICOTINE 21 MG/24 HOUR PATCH TD SCH (09:00)
[2017-07-04] MEDS: OLANZapine 7.5 MG TABLET PO SCH (20:19)
[2017-07-04 21:23] VITALS: BP 142/86
[2017-07-05 08:09] VITALS: BP 145/100
[2017-07-05] MEDS: CARVEDILOL 12.5 MG TABLET PO SCH ×2 (08:20→16:08)
[2017-07-05] MEDS: DOCUSATE SODIUM 100 MG CAPSULE PO SCH (08:20)
[2017-07-05] MEDS: ASPIRIN 81 MG CHEWABLE TABLET PO SCH (08:20)
[2017-07-05] MEDS: CHOLECALCIFEROL (VIT D3) 1,000 UNITS TABLET PO SCH (08:21)
[2017-07-05] MEDS: ISOSORBIDE DINITRATE 20 MG TABLET PO SCH (08:21)
[2017-07-05] MEDS: FUROSEMIDE 40 MG TABLET PO SCH (08:21)
[2017-07-05] MEDS: OMEPRAZOLE 20 MG CAPSULE PO SCH (08:21)
[2017-07-05] MEDS: LISINOPRIL 20 MG TABLET PO SCH (08:21)
[2017-07-05] MEDS: NICOTINE 21 MG/24 HOUR PATCH TD SCH (08:30)
[2017-07-05 17:11] VITALS: BP 147/102
[2017-07-05] MEDS: OLANZapine 7.5 MG TABLET PO SCH (20:15)
[2017-07-06] MEDS: ISOSORBIDE DINITRATE 20 MG TABLET PO SCH (08:41)
[2017-07-06] MEDS: CARVEDILOL 12.5 MG TABLET PO SCH ×2 (08:41→16:33)
[2017-07-06] MEDS: ASPIRIN 81 MG CHEWABLE TABLET PO SCH (08:41)
[2017-07-06] MEDS: CHOLECALCIFEROL (VIT D3) 1,000 UNITS TABLET PO SCH (08:41)
[2017-07-06] MEDS: LISINOPRIL 20 MG TABLET PO SCH (08:41)
[2017-07-06] MEDS: OMEPRAZOLE 20 MG CAPSULE PO SCH (08:41)
[2017-07-06] MEDS: DOCUSATE SODIUM 100 MG CAPSULE PO SCH (08:41)
[2017-07-06] MEDS: FUROSEMIDE 40 MG TABLET PO SCH (08:42)
[2017-07-06] MEDS: NICOTINE 21 MG/24 HOUR PATCH TD SCH (08:52)
[2017-07-06 09:06] VITALS: BP 132/84
[2017-07-06 17:07] VITALS: BP 142/74
[2017-07-06] MEDS: OLANZapine 7.5 MG TABLET PO SCH (21:06)
[2017-07-07 08:36] VITALS: BP 121/71
[2017-07-07] MEDS: DOCUSATE SODIUM 100 MG CAPSULE PO SCH (09:04)
[2017-07-07] MEDS: ASPIRIN 81 MG CHEWABLE TABLET PO SCH (09:05)
[2017-07-07] MEDS: CARVEDILOL 12.5 MG TABLET PO SCH ×2 (09:05→16:34)
[2017-07-07] MEDS: LISINOPRIL 20 MG TABLET PO SCH (09:07)
[2017-07-07] MEDS: FUROSEMIDE 40 MG TABLET PO SCH (09:07)
[2017-07-07] MEDS: ISOSORBIDE DINITRATE 20 MG TABLET PO SCH (09:07)
[2017-07-07] MEDS: OMEPRAZOLE 20 MG CAPSULE PO SCH (09:08)
[2017-07-07] MEDS: CHOLECALCIFEROL (VIT D3) 1,000 UNITS TABLET PO SCH (09:08)
[2017-07-07] MEDS: NICOTINE 21 MG/24 HOUR PATCH TD SCH (09:09)
[2017-07-07] MEDS ORDERED: DEXTROSE 50%-WATER 25 GM/50 ML SYRINGE IVP PRN (09:15)
[2017-07-07 11:47] LABS: GLUCOMETER DEV NAME(LOC) 3EX 1; GLUCOSE,POINT OF CARE 170 MG/DL (70-110)
[2017-07-07] MEDS: INSULIN LISPRO 100 UNITS/ML SQ PRN (12:07)
[2017-07-07] MEDS: MetFORMIN HCL 500 MG TABLET PO SCH (16:34)
[2017-07-07 16:47] VITALS: BP 150/95
[2017-07-07 18:08] LABS: GLUCOMETER DEV NAME(LOC) 3EX 1; GLUCOSE,POINT OF CARE 114 MG/DL (70-110)
[2017-07-07] MEDS: OLANZapine 7.5 MG TABLET PO SCH (20:10)
[2017-07-07 20:23] LABS: GLUCOMETER DEV NAME(LOC) 3EX 1; GLUCOSE,POINT OF CARE 137 MG/DL (70-110)
[2017-07-08 05:27] LABS: GLUCOMETER DEV NAME(LOC) 3EI B; GLUCOSE,POINT OF CARE 140 MG/DL (70-110)
[2017-07-08] MEDS: MetFORMIN HCL 500 MG TABLET PO SCH ×2 (07:15→16:27)
[2017-07-08 08:32] VITALS: BP 132/98
[2017-07-08] MEDS: ASPIRIN 81 MG CHEWABLE TABLET PO SCH (09:38)
[2017-07-08] MEDS: LISINOPRIL 20 MG TABLET PO SCH (09:38)
[2017-07-08] MEDS: ISOSORBIDE DINITRATE 20 MG TABLET PO SCH (09:39)
[2017-07-08] MEDS: OMEPRAZOLE 20 MG CAPSULE PO SCH (09:39)
[2017-07-08] MEDS: DOCUSATE SODIUM 100 MG CAPSULE PO SCH (09:39)
[2017-07-08] MEDS: CARVEDILOL 12.5 MG TABLET PO SCH ×2 (09:40→16:25)
[2017-07-08] MEDS: FUROSEMIDE 40 MG TABLET PO SCH (09:40)
[2017-07-08] MEDS: CHOLECALCIFEROL (VIT D3) 1,000 UNITS TABLET PO SCH (09:41)
[2017-07-08] MEDS: NICOTINE 21 MG/24 HOUR PATCH TD SCH (09:41)
[2017-07-08] MEDS: INSULIN LISPRO 100 UNITS/ML SQ PRN (12:33)
[2017-07-08] MEDS ORDERED: SLOWK8 PO (18:45)
[2017-07-08] MEDS: OLANZapine 7.5 MG TABLET PO SCH (20:16)
[2017-07-09] MEDS: MetFORMIN HCL 500 MG TABLET PO SCH (07:23)
[2017-07-09] MEDS: DOCUSATE SODIUM 100 MG CAPSULE PO SCH (08:06)
[2017-07-09] MEDS: ASPIRIN 81 MG CHEWABLE TABLET PO SCH (08:06)
[2017-07-09] MEDS: ISOSORBIDE DINITRATE 20 MG TABLET PO SCH (08:07)
[2017-07-09] MEDS: CARVEDILOL 12.5 MG TABLET PO SCH (08:07)
[2017-07-09] MEDS: CHOLECALCIFEROL (VIT D3) 1,000 UNITS TABLET PO SCH (08:08)
[2017-07-09] MEDS: OMEPRAZOLE 20 MG CAPSULE PO SCH (08:08)
[2017-07-09 08:15] VITALS: BP 160/105
[2017-07-09] MEDS: NICOTINE 21 MG/24 HOUR PATCH TD SCH (09:00)
[2017-07-09] MEDS ORDERED: FUROSEMIDE 20 MG TABLET PO SCH (09:00)
[2017-07-09] MEDS ORDERED: LISINOPRIL 10 MG TABLET PO SCH (09:00)
[2017-07-09 11:12] LABS: GLUCOMETER DEV NAME(LOC) 3EX 1; GLUCOSE,POINT OF CARE 123 MG/DL (70-110)
[2017-07-09] MEDS ORDERED: OLAN15TA2 PO (11:24)
[2017-07-09] MEDS ORDERED: LISI-661 PO (12:38)
[2017-07-09] MEDS ORDERED: METF500T4 PO (12:39)
[2017-07-09] MEDS ORDERED: OMEP20 PO (12:40)
== END 2017-07-09 15:00 | disposition home or self-care (01) | DRG 885 ==
LOC: EMS 06:47 → AHU 11:54 → 3EX 20:54
DX: F20.0 Paranoid schizophrenia (principal); I11.0 Hypertensive heart disease with heart failure; I50.22 Chronic systolic (congestive) heart failure; E11.9 Type 2 diabetes mellitus without complications; E03.9 Hypothyroidism, unspecified; E55.9 Vitamin D deficiency, unspecified; E66.9 Obesity, unspecified; E78.00 Pure hypercholesterolemia, unspecified; F15.10 Other stimulant abuse, uncomplicated; G47.00 Insomnia, unspecified; J44.9 Chronic obstructive pulmonary disease, unspecified; K21.9 Gastro-esophageal reflux disease without esophagitis; K59.00 Constipation, unspecified; Z59.0 Homelessness; Z72.0 Tobacco use; Z71.51 Drug abuse counseling and surveillance of drug abuser; Z71.6 Tobacco abuse counseling; Z90.49 Acquired absence of other specified parts of digestive tract; Z91.5 Personal history of self-harm; Z88.5 Allergy status to narcotic agent; Z88.8 Allergy status to other drugs, medicaments and biological substances
CPT/HCPCS: 82962; 84439; 84443; 99285; G0480

== ENCOUNTER 2017-12-07 22:23 | Emergency (ER) | payer MEDICARE, MEDICAID ==
[~2017-12-07] VITALS: Ht 165.1 cm; Wt 93.6 kg
[~2017-12-07 22:23] MED LIST changes: -ASPI81 PO; +DOCU-119 PO; -DSS100 PO; -FURO-151 PO; +FURO20 PO; +HALO5TAB2 PO; -ISOS20TA9 PO; +LISI-660 PO; -LISI-662 PO; -OLAN7.5T2 PO; +OMEP10CA41 PO; -POTA25TA7 PO; -VITAD1000 PO
[2017-12-07 22:48] LABS: GLUCOSE,POINT OF CARE 137 MG/DL (70-110)
[2017-12-08 00:08] LABS: BASOPHILS % (AUTO) 0.4 % (0.0-2.0); EOSINOPHILS % (AUTO) 2.4 % (1.0-6.0); HEMATOCRIT 43.4 % (41-53); HEMOGLOBIN 14.7 g/dL (13.5-17.5); LYMPHOCYTES # (AUTO) 1.1 K/uL (1.0-4.8); LYMPHOCYTES % (AUTO) 16.3 % (22.0-44.0); MEAN CORPUSCULAR HEMOGLOBIN 31.1 pg (26.0-34.0); MEAN CORPUSCULAR HGB CONC 33.8 G/dL (31.0-37.0); MEAN CORPUSCULAR VOLUME 92 fL (80-100); MONOCYTES # (AUTO) 0.7 K/uL (0.1-1.0); MONOCYTES % (AUTO) 10.9 % (2.0-9.0); NEUTROPHILS # (AUTO) 4.7 K/uL (1.8-7.7); PLATELET COUNT (AUTO) 162 K/uL (150-450); RED BLOOD CELL COUNT(AUTO) 4.72 MIL/uL (4.50-5.90); RED CELL DISTRIBUTION WIDTH 15.1 % (11.5-14.5)
[2017-12-08 00:18] LABS: ANION GAP 5 mmol/L (8-16); CALCIUM, TOTAL 8.8 mg/dL (8.8-10.5); CARBON DIOXIDE 30 mmol/L (22-29); CHLORIDE 104 mmol/L (98-107); CREATININE 1.17 mg/dL (0.60-1.30); GLOMERULAR FILTR. RATE CALC > 60 mL/min (>60); GLUCOSE,RANDOM 135 mg/dL (70-110); SODIUM SERUM 139 mmol/L (136-145); UREA NITROGEN, BLOOD 17 mg/dL (7-18)
[2017-12-08 00:24] LABS: ALANINE AMINOTRANSFERASE 32 U/L (12-78); ALBUMIN 3.4 g/dL (3.4-5.0); ALKALINE PHOSPHATASE 98 U/L (46-116); ASPARTATE AMINOTRANSFERASE 22 U/L (15-37); BILIRUBIN,TOTAL 0.6 mg/dL (0.1-1.0); TOTAL PROTEIN, SERUM 6.6 g/dL (6.4-8.2)
[2017-12-08 00:59] VITALS: BP 145/87
[2017-12-08] MEDS ORDERED: LORazepam 2 MG/ML VIAL IM ONE (01:30)
[2017-12-08] MEDS ORDERED: DiphenhydrAMINE HCL 50 MG/ML VIAL IM ONE (01:30)
[2017-12-08] MEDS ORDERED: HALOPERIDOL LACTATE 5 MG/ML VIAL IM ONE (01:30)
== END 2017-12-08 05:58 | disposition left against medical advice (07) ==
LOC: EMS 22:24
DX: F41.9 Anxiety disorder, unspecified (principal); F31.9 Bipolar disorder, unspecified; F20.9 Schizophrenia, unspecified; F12.90 Cannabis use, unspecified, uncomplicated; F15.90 Other stimulant use, unspecified, uncomplicated; I11.0 Hypertensive heart disease with heart failure; I50.9 Heart failure, unspecified; E03.9 Hypothyroidism, unspecified; F17.210 Nicotine dependence, cigarettes, uncomplicated; Z88.5 Allergy status to narcotic agent; Z88.8 Allergy status to other drugs, medicaments and biological substances; Z91.018 Allergy to other foods
CPT/HCPCS: 36415; 80053; 82962; 85025; 99284; G0480

== ENCOUNTER 2017-12-29 15:52 | Inpatient (IN) | payer MEDICARE, MEDICAID ==
[~2017-12-29] VITALS: Ht 165.1 cm; Wt 95.0 kg
[~2017-12-29 15:52] MED LIST changes: +METF-960 PO
[2017-12-29 16:49] LABS: GLUCOSE,POINT OF CARE 117 MG/DL (70-110)
[2017-12-29 17:21] LABS: BASOPHILS % (AUTO) 0.4 % (0.0-2.0); EOSINOPHILS % (AUTO) 1.5 % (1.0-6.0); HEMATOCRIT 40.5 % (41-53); HEMOGLOBIN 13.5 g/dL (13.5-17.5); LYMPHOCYTES % (AUTO) 20.7 % (22.0-44.0); MEAN CORPUSCULAR HEMOGLOBIN 30.6 pg (26.0-34.0); MEAN CORPUSCULAR HGB CONC 33.2 G/dL (31.0-37.0); MEAN CORPUSCULAR VOLUME 92 fL (80-100); MONOCYTES # (AUTO) 0.5 K/uL (0.1-1.0); MONOCYTES % (AUTO) 10.9 % (2.0-9.0); NEUTROPHILS # (AUTO) 3.2 K/uL (1.8-7.7); NEUTROPHILS % (AUTO) 66.5 % (40.0-70.0); PLATELET COUNT (AUTO) 180 K/uL (150-450); RED CELL DISTRIBUTION WIDTH 15.6 % (11.5-14.5)
[2017-12-29 17:33] LABS: ANION GAP 6 mmol/L (8-16); CALCIUM, TOTAL 8.4 mg/dL (8.8-10.5); CARBON DIOXIDE 32 mmol/L (22-29); CHLORIDE 105 mmol/L (98-107); GLOMERULAR FILTR. RATE CALC > 60 mL/min (>60); GLUCOSE,RANDOM 115 mg/dL (70-110); POTASSIUM 3.5 mmol/L (3.5-5.1); SODIUM SERUM 143 mmol/L (136-145); UREA NITROGEN, BLOOD 17 mg/dL (7-18)
[2017-12-29 17:38] LABS: ALANINE AMINOTRANSFERASE 34 U/L (12-78); ALBUMIN 3.2 g/dL (3.4-5.0); ALKALINE PHOSPHATASE 92 U/L (46-116); ASPARTATE AMINOTRANSFERASE 20 U/L (15-37); BILIRUBIN,TOTAL 0.7 mg/dL (0.1-1.0); TOTAL PROTEIN, SERUM 5.9 g/dL (6.4-8.2)
[2017-12-29 17:43] LABS: B-TYPE NATRIURETIC PEPTIDE 1440 pg/mL (0-100)
[2017-12-29] MEDS ORDERED: ACETAMINOPHEN 325 MG TABLET PO PRN ×2 (19:45→20:30)
[2017-12-29] MEDS ORDERED: FUROSEMIDE 40 MG/4 ML VIAL IVP ONE (19:45)
[2017-12-29] MEDS ORDERED: ONDANSETRON HCL 4 MG/2 ML VIAL IVP PRN ×2 (19:45→20:30)
[2017-12-29] MEDS ORDERED: 0.9% SODIUM CHLORIDE 10 ML SYRINGE IVP PRN (19:45)
[2017-12-29] MEDS ORDERED: OMEP20 PO (19:53)
[2017-12-29] MEDS ORDERED: MAGNESIUM OXIDE 400 MG TABLET PO PRN (20:30)
[2017-12-29] MEDS ORDERED: POTASSIUM CHL 10 MEQ/WATER 50 ML IV PRN (20:30)
[2017-12-29] MEDS ORDERED: BISACODYL 10 MG RECTAL RECTAL SUPPOSITORY PR PRN (20:30)
[2017-12-29] MEDS ORDERED: ZOLPIDEM TARTRATE 5 MG TABLET PO PRN (20:30)
[2017-12-29] MEDS ORDERED: MAGNESIUM HYDROXIDE SUSPENSION 30 ML UDCUP PO PRN (20:30)
[2017-12-29] MEDS ORDERED: IPRATROPIUM BROMIDE 0.5 MG/2.5 ML NEB SOLUTION NEB PRN (20:30)
[2017-12-29] MEDS ORDERED: MAGNESIUM SULFATE 4 GM/WATER 100 ML IV PRN (20:30)
[2017-12-29] MEDS ORDERED: ALBUTEROL SULFATE 2.5 MG/0.5 ML NEB SOLUTION NEB PRN (20:30)
[2017-12-29 22:34] VITALS: BP 147/92
[2017-12-30] VITALS (7 sets, daily range): BP systolic 139–158; BP diastolic 77–97
[2017-12-30] MEDS ORDERED: FUROSEMIDE 40 MG/4 ML VIAL IVP SCH
[2017-12-30] MEDS: HALOPERIDOL 5 MG TABLET PO SCH ×2 (00:20→20:35)
[2017-12-30] MEDS: CARVEDILOL 12.5 MG TABLET PO SCH ×3 (00:20→20:35)
[2017-12-30] MEDS: FUROSEMIDE 40 MG/4 ML VIAL IVP SCH ×4 (00:20→20:36)
[2017-12-30] MEDS: HEPARIN SODIUM,PORCINE 5,000 UNITS/ML VIAL SQ SCH ×3 (00:20→20:36)
[2017-12-30 06:54] LABS: BASOPHILS % (AUTO) 0.4 % (0.0-2.0); EOSINOPHILS % (AUTO) 1.2 % (1.0-6.0); HEMATOCRIT 40.3 % (41-53); HEMOGLOBIN 13.5 g/dL (13.5-17.5); LYMPHOCYTES # (AUTO) 0.8 K/uL (1.0-4.8); LYMPHOCYTES % (AUTO) 15.4 % (22.0-44.0); MEAN CORPUSCULAR HEMOGLOBIN 31.1 pg (26.0-34.0); MEAN CORPUSCULAR HGB CONC 33.5 G/dL (31.0-37.0); MEAN CORPUSCULAR VOLUME 93 fL (80-100); MONOCYTES # (AUTO) 0.4 K/uL (0.1-1.0); MONOCYTES % (AUTO) 8.6 % (2.0-9.0); NEUTROPHILS # (AUTO) 3.8 K/uL (1.8-7.7); NEUTROPHILS % (AUTO) 74.4 % (40.0-70.0); PLATELET COUNT (AUTO) 185 K/uL (150-450); RED BLOOD CELL COUNT(AUTO) 4.34 MIL/uL (4.50-5.90); RED CELL DISTRIBUTION WIDTH 15.2 % (11.5-14.5)
[2017-12-30 07:11] LABS: ALANINE AMINOTRANSFERASE 33 U/L (12-78); ALBUMIN 3.1 g/dL (3.4-5.0); ALKALINE PHOSPHATASE 94 U/L (46-116); ANION GAP 4 mmol/L (8-16); ASPARTATE AMINOTRANSFERASE 20 U/L (15-37); BILIRUBIN,TOTAL 0.7 mg/dL (0.1-1.0); CALCIUM, TOTAL 8.3 mg/dL (8.8-10.5); CARBON DIOXIDE 37 mmol/L (22-29); CHLORIDE 102 mmol/L (98-107); GLOMERULAR FILTR. RATE CALC > 60 mL/min (>60); GLUCOSE,RANDOM 156 mg/dL (70-110); PHOSPHORUS 4.7 mg/dL (2.5-4.9); POTASSIUM 3.3 mmol/L (3.5-5.1); SODIUM SERUM 143 mmol/L (136-145); TOTAL PROTEIN, SERUM 5.9 g/dL (6.4-8.2); UREA NITROGEN, BLOOD 16 mg/dL (7-18)
[2017-12-30] MEDS: MetFORMIN HCL 500 MG TABLET PO SCH ×2 (08:20→17:58)
[2017-12-30] MEDS: PANTOPRAZOLE SODIUM 40 MG DR TABLET PO SCH (08:20)
[2017-12-30] MEDS: POTASSIUM CHLORIDE 20 MEQ ER TABLET PO PRN (08:20)
[2017-12-30] MEDS ORDERED: LISINOPRIL 5 MG TABLET PO SCH (09:00)
[2017-12-30] MEDS ORDERED: SODIUM CHLORIDE 0.9% 250 ML IV ONE (10:30)
[2017-12-30] MEDS: MAGNESIUM SULFATE 2 GM/WATER 50 ML IV PRN (10:37)
[2017-12-30] MEDS: SPIRONOLACTONE 25 MG TABLET PO SCH (15:27)
[2017-12-31 00:44] VITALS: BP 119/50
[2017-12-31 04:22] VITALS: BP 158/90
[2017-12-31 06:09] LABS: BASOPHILS % (AUTO) 0.6 % (0.0-2.0); EOSINOPHILS % (AUTO) 1.6 % (1.0-6.0); HEMATOCRIT 41.8 % (41-53); HEMOGLOBIN 14.2 g/dL (13.5-17.5); LYMPHOCYTES % (AUTO) 19.4 % (22.0-44.0); MEAN CORPUSCULAR HEMOGLOBIN 30.7 pg (26.0-34.0); MEAN CORPUSCULAR HGB CONC 33.9 G/dL (31.0-37.0); MEAN CORPUSCULAR VOLUME 91 fL (80-100); MONOCYTES # (AUTO) 0.5 K/uL (0.1-1.0); MONOCYTES % (AUTO) 9.3 % (2.0-9.0); NEUTROPHILS # (AUTO) 3.4 K/uL (1.8-7.7); NEUTROPHILS % (AUTO) 69.1 % (40.0-70.0); PLATELET COUNT (AUTO) 190 K/uL (150-450); RED BLOOD CELL COUNT(AUTO) 4.62 MIL/uL (4.50-5.90)
[2017-12-31 06:48] LABS: ALANINE AMINOTRANSFERASE 30 U/L (12-78); ALBUMIN 3.1 g/dL (3.4-5.0); ALKALINE PHOSPHATASE 94 U/L (46-116); ANION GAP 3 mmol/L (8-16); ASPARTATE AMINOTRANSFERASE 18 U/L (15-37); BILIRUBIN,TOTAL 1.2 mg/dL (0.1-1.0); CALCIUM, TOTAL 8.6 mg/dL (8.8-10.5); CARBON DIOXIDE 40 mmol/L (22-29); CHLORIDE 100 mmol/L (98-107); CREATININE 0.76 mg/dL (0.60-1.30); GLOMERULAR FILTR. RATE CALC > 60 mL/min (>60); GLUCOSE,RANDOM 138 mg/dL (70-110); POTASSIUM 3.4 mmol/L (3.5-5.1); SODIUM SERUM 143 mmol/L (136-145); TOTAL PROTEIN, SERUM 5.8 g/dL (6.4-8.2); UREA NITROGEN, BLOOD 16 mg/dL (7-18)
[2017-12-31 07:40] VITALS: BP 148/107
[2017-12-31] MEDS: POTASSIUM CHLORIDE 20 MEQ ER TABLET PO PRN (08:01)
[2017-12-31] MEDS: FUROSEMIDE 40 MG/4 ML VIAL IVP SCH (08:01)
[2017-12-31] MEDS: MetFORMIN HCL 500 MG TABLET PO SCH (08:01)
[2017-12-31] MEDS: HEPARIN SODIUM,PORCINE 5,000 UNITS/ML VIAL SQ SCH (08:01)
[2017-12-31] MEDS: PANTOPRAZOLE SODIUM 40 MG DR TABLET PO SCH (08:01)
[2017-12-31] MEDS: SPIRONOLACTONE 25 MG TABLET PO SCH (08:01)
[2017-12-31] MEDS: CARVEDILOL 12.5 MG TABLET PO SCH (08:01)
[2017-12-31] MEDS: MAGNESIUM SULFATE 2 GM/WATER 50 ML IV PRN ×2 (08:49→08:52)
[2017-12-31] MEDS ORDERED: LISINOPRIL 20 MG TABLET PO SCH (09:00)
[2017-12-31 10:50] VITALS: BP 116/80
[2017-12-31 15:39] VITALS: BP 123/78
== END 2017-12-31 16:10 | disposition left against medical advice (07) | DRG 292 ==
LOC: EMS 15:53 → 5S 20:00
PROVIDERS: ADMIT Internal Medicine; ATTEND Internal Medicine
DX: I11.0 Hypertensive heart disease with heart failure (principal); F20.0 Paranoid schizophrenia; I50.31 Acute diastolic (congestive) heart failure; I42.0 Dilated cardiomyopathy; E11.9 Type 2 diabetes mellitus without complications; E03.9 Hypothyroidism, unspecified; E66.9 Obesity, unspecified; E78.00 Pure hypercholesterolemia, unspecified; F15.10 Other stimulant abuse, uncomplicated; F17.200 Nicotine dependence, unspecified, uncomplicated; J44.9 Chronic obstructive pulmonary disease, unspecified; F41.9 Anxiety disorder, unspecified; K59.00 Constipation, unspecified; F12.90 Cannabis use, unspecified, uncomplicated; F31.9 Bipolar disorder, unspecified; K21.9 Gastro-esophageal reflux disease without esophagitis; Z79.84 Long term (current) use of oral hypoglycemic drugs; Z90.49 Acquired absence of other specified parts of digestive tract; Z98.1 Arthrodesis status; Z88.6 Allergy status to analgesic agent; Z88.8 Allergy status to other drugs, medicaments and biological substances; Z79.899 Other long term (current) drug therapy; Z71.51 Drug abuse counseling and surveillance of drug abuser; Z71.6 Tobacco abuse counseling
CPT/HCPCS: 83735; 84100; 84132; 93005; 93306; 96374; 99285; J1644; J1940; J3475; J7050

== ENCOUNTER 2018-04-11 03:49 | Emergency (ER) | payer MEDICARE, MEDICAID ==
[~2018-04-11] VITALS: Ht 165.1 cm; Wt 98.6 kg
[~2018-04-11 03:49] MED LIST changes: -OMEP10CA41 PO; +OMEP20 PO
[2018-04-11 04:41] LABS: BASOPHILS % (AUTO) 0.3 % (0.0-2.0); EOSINOPHILS % (AUTO) 1.1 % (1.0-6.0); HEMATOCRIT 40.5 % (41-53); HEMOGLOBIN 13.7 g/dL (13.5-17.5); LYMPHOCYTES # (AUTO) 0.6 K/uL (1.0-4.8); LYMPHOCYTES % (AUTO) 10.4 % (22.0-44.0); MEAN CORPUSCULAR HEMOGLOBIN 31.6 pg (26.0-34.0); MEAN CORPUSCULAR HGB CONC 33.9 G/dL (31.0-37.0); MEAN CORPUSCULAR VOLUME 93 fL (80-100); MONOCYTES # (AUTO) 0.5 K/uL (0.1-1.0); MONOCYTES % (AUTO) 9.2 % (2.0-9.0); NEUTROPHILS # (AUTO) 4.5 K/uL (1.8-7.7); PLATELET COUNT (AUTO) 151 K/uL (150-450); RED BLOOD CELL COUNT(AUTO) 4.34 MIL/uL (4.50-5.90); RED CELL DISTRIBUTION WIDTH 16.2 % (11.5-14.5)
[2018-04-11 04:50] LABS: ANION GAP 7 mmol/L (8-16); CARBON DIOXIDE 28 mmol/L (22-29); CHLORIDE 103 mmol/L (98-107); CREATININE 0.92 mg/dL (0.60-1.30); GLOMERULAR FILTR. RATE CALC > 60 mL/min (>60); GLUCOSE,RANDOM 161 mg/dL (70-110); POTASSIUM 4.1 mmol/L (3.5-5.1); SODIUM SERUM 138 mmol/L (136-145); UREA NITROGEN, BLOOD 20 mg/dL (7-18)
[2018-04-11 04:55] LABS: ALANINE AMINOTRANSFERASE 36 U/L (12-78); ALBUMIN 3.3 g/dL (3.4-5.0); ALKALINE PHOSPHATASE 127 U/L (46-116); ASPARTATE AMINOTRANSFERASE 32 U/L (15-37); BILIRUBIN,TOTAL 1.1 mg/dL (0.1-1.0); TOTAL PROTEIN, SERUM 6.5 g/dL (6.4-8.2)
[2018-04-11 06:07] VITALS: BP 136/84
== END 2018-04-11 06:20 | disposition home or self-care (01) ==
LOC: EMS 03:49
DX: F20.0 Paranoid schizophrenia (principal); R60.0 Localized edema; F31.9 Bipolar disorder, unspecified; I11.0 Hypertensive heart disease with heart failure; I50.9 Heart failure, unspecified; E78.00 Pure hypercholesterolemia, unspecified; E03.9 Hypothyroidism, unspecified; F17.210 Nicotine dependence, cigarettes, uncomplicated; F12.90 Cannabis use, unspecified, uncomplicated; F19.90 Other psychoactive substance use, unspecified, uncomplicated; Z88.8 Allergy status to other drugs, medicaments and biological substances; Z88.5 Allergy status to narcotic agent; Z91.018 Allergy to other foods; Z79.899 Other long term (current) drug therapy; Z79.84 Long term (current) use of oral hypoglycemic drugs
CPT/HCPCS: 36415; 80053; 82962; 85025; 93005; 99285; G0480

== ENCOUNTER 2018-07-31 | Inpatient (IN) | payer MEDICAID, MEDICARE ==
[~2018-07-31] VITALS: Ht 165.1 cm; Wt 90.9 kg
[2018-07-31 00:29] LABS: GLUCOSE,POINT OF CARE 139 MG/DL (70-110)
[2018-07-31] MEDS ORDERED: LORazepam 2 MG/ML VIAL IM ONE ×2 (00:30→09:15)
[2018-07-31] MEDS ORDERED: HALOPERIDOL LACTATE 5 MG/ML VIAL IM ONE ×2 (00:30→09:15)
[2018-07-31] MEDS ORDERED: DiphenhydrAMINE HCL 50 MG/ML VIAL IM ONE ×2 (00:30→09:15)
[2018-07-31 00:45] LABS: BASOPHILS % (AUTO) 0.5 % (0.0-2.0); EOSINOPHILS % (AUTO) 2.7 % (1.0-6.0); HEMATOCRIT 38.6 % (41-53); HEMOGLOBIN 12.7 g/dL (13.5-17.5); LYMPHOCYTES # (AUTO) 1.3 K/uL (1.0-4.8); LYMPHOCYTES % (AUTO) 27.4 % (22.0-44.0); MEAN CORPUSCULAR HEMOGLOBIN 29.4 pg (26.0-34.0); MEAN CORPUSCULAR HGB CONC 32.9 G/dL (31.0-37.0); MEAN CORPUSCULAR VOLUME 89 fL (80-100); MONOCYTES # (AUTO) 0.5 K/uL (0.1-1.0); MONOCYTES % (AUTO) 9.8 % (2.0-9.0); NEUTROPHILS # (AUTO) 2.8 K/uL (1.8-7.7); NEUTROPHILS % (AUTO) 59.6 % (40.0-70.0); PLATELET COUNT (AUTO) 164 K/uL (150-450); RED BLOOD CELL COUNT(AUTO) 4.32 MIL/uL (4.50-5.90); RED CELL DISTRIBUTION WIDTH 16.9 % (11.5-14.5)
[2018-07-31 00:58] LABS: ANION GAP 8 mmol/L (8-16); CALCIUM, TOTAL 9.3 mg/dL (8.8-10.5); CARBON DIOXIDE 30 mmol/L (22-29); CHLORIDE 106 mmol/L (98-107); CREATININE 1.06 mg/dL (0.60-1.30); GLOMERULAR FILTR. RATE CALC > 60 mL/min (>60); GLUCOSE,RANDOM 150 mg/dL (70-110); POTASSIUM 3.7 mmol/L (3.5-5.1); SODIUM SERUM 144 mmol/L (136-145); UREA NITROGEN, BLOOD 25 mg/dL (7-18)
[2018-07-31 01:04] LABS: ALANINE AMINOTRANSFERASE 41 U/L (12-78); ALBUMIN 3.7 g/dL (3.4-5.0); ALKALINE PHOSPHATASE 116 U/L (46-116); ASPARTATE AMINOTRANSFERASE 24 U/L (15-37); BILIRUBIN,TOTAL 0.5 mg/dL (0.1-1.0); TOTAL PROTEIN, SERUM 6.8 g/dL (6.4-8.2)
[2018-07-31] MEDS ORDERED: ZOLPIDEM TARTRATE 10 MG TABLET PO PRN (02:45)
[2018-07-31 04:56] VITALS: BP 142/78
[2018-07-31] MEDS ORDERED: PNEUMOCOCCAL VACCINE POLYVALENT 0.5 ML VIAL [PPSV23] IM ONE (07:00)
[2018-07-31 08:19] VITALS: BP 155/99
[2018-07-31] MEDS: CARVEDILOL 12.5 MG TABLET PO SCH ×2 (09:12→16:40)
[2018-07-31] MEDS: LISINOPRIL 5 MG TABLET PO SCH (09:12)
[2018-07-31] MEDS: FUROSEMIDE 20 MG TABLET PO SCH (09:13)
[2018-07-31] MEDS ORDERED: NICOTINE 14 MG/24 HOUR PATCH TD PRN (14:15)
[2018-07-31] MEDS ORDERED: DOCUSATE SODIUM 100 MG CAPSULE PO PRN (14:15)
[2018-07-31] MEDS ORDERED: GuaiFENesin/D-METHORPHAN [SUGAR-FREE] 200-20MG/10 ML SYRUP UDCUP PO PRN (14:15)
[2018-07-31] MEDS ORDERED: ACETAMINOPHEN 325 MG TABLET PO PRN (14:15)
[2018-07-31] MEDS ORDERED: ONDANSETRON HCL 4 MG TABLET PO PRN (14:15)
[2018-07-31] MEDS ORDERED: CloNIDine HCL 0.1 MG TABLET PO PRN (14:15)
[2018-07-31] MEDS ORDERED: PETROLATUM,WHITE 28 GM JELLY TP PRN (14:15)
[2018-07-31] MEDS ORDERED: LOPERAMIDE HCL 2 MG CAPSULE PO PRN (14:15)
[2018-07-31] MEDS ORDERED: ALBUTEROL SULFATE HFA 90 MCG/PUFF 8 GM INHALER IH PRN (14:15)
[2018-07-31] MEDS ORDERED: MAGNESIUM HYDROXIDE SUSPENSION 30 ML UDCUP PO PRN (14:15)
[2018-07-31] MEDS ORDERED: MAG HYDROX/AL HYDROX/SIMETH ES 30 ML SUSPENSION UDCUP PO PRN (14:15)
[2018-07-31] MEDS ORDERED: IBUPROFEN 400 MG TABLET PO PRN (14:15)
[2018-07-31] MEDS: MetFORMIN HCL 500 MG TABLET PO SCH (16:40)
[2018-07-31] MEDS: HALOPERIDOL 5 MG TABLET PO SCH (20:18)
[2018-08-01] MEDS: MetFORMIN HCL 500 MG TABLET PO SCH ×2 (07:01→17:39)
[2018-08-01] MEDS ORDERED: PALIPERIDONE PALMITATE 234 MG/1.5 ML SYRINGE IM ONE (09:00)
[2018-08-01] MEDS: LORazepam 2 MG TABLET PO PRN ×2 (09:07→13:07)
[2018-08-01] MEDS: CARVEDILOL 12.5 MG TABLET PO SCH ×2 (09:07→17:39)
[2018-08-01] MEDS: LISINOPRIL 5 MG TABLET PO SCH (09:08)
[2018-08-01] MEDS: OMEPRAZOLE 20 MG CAPSULE PO SCH (09:08)
[2018-08-01] MEDS: FUROSEMIDE 20 MG TABLET PO SCH (09:08)
[2018-08-01] MEDS: HALOPERIDOL 5 MG TABLET PO PRN ×2 (09:08→13:07)
[2018-08-01 09:33] VITALS: BP 144/108
[2018-08-01] MEDS: HALOPERIDOL 5 MG TABLET PO SCH (20:06)
[2018-08-01 20:34] VITALS: BP 145/75
[2018-08-02 06:49] LABS: CHOL/HDL RATIO 2.3 (4.2-7.3)
[2018-08-02] MEDS: MetFORMIN HCL 500 MG TABLET PO SCH ×2 (06:54→16:44)
[2018-08-02] MEDS: LISINOPRIL 5 MG TABLET PO SCH (07:51)
[2018-08-02] MEDS: FUROSEMIDE 20 MG TABLET PO SCH (07:51)
[2018-08-02] MEDS: HALOPERIDOL 5 MG TABLET PO PRN (07:51)
[2018-08-02] MEDS: CARVEDILOL 12.5 MG TABLET PO SCH ×2 (07:51→16:44)
[2018-08-02] MEDS: LORazepam 2 MG TABLET PO PRN (07:51)
[2018-08-02] MEDS: OMEPRAZOLE 20 MG CAPSULE PO SCH (07:51)
[2018-08-02 08:33] VITALS: BP 159/100
[2018-08-02 16:50] VITALS: BP 142/72
[2018-08-02] MEDS: HALOPERIDOL 5 MG TABLET PO SCH (20:51)
[2018-08-03] MEDS: MetFORMIN HCL 500 MG TABLET PO SCH ×2 (06:41→16:49)
[2018-08-03] MEDS: LISINOPRIL 5 MG TABLET PO SCH (08:11)
[2018-08-03] MEDS: OMEPRAZOLE 20 MG CAPSULE PO SCH (08:11)
[2018-08-03] MEDS: FUROSEMIDE 20 MG TABLET PO SCH (08:11)
[2018-08-03] MEDS: CARVEDILOL 12.5 MG TABLET PO SCH ×2 (08:12→16:49)
[2018-08-03 08:28] VITALS: BP 158/86
[2018-08-03] MEDS: LORazepam 2 MG TABLET PO PRN (13:49)
[2018-08-03 16:03] VITALS: BP 149/111
[2018-08-03] MEDS: HALOPERIDOL 5 MG TABLET PO SCH (20:23)
[2018-08-04 00:30] VITALS: BP 140/107
[2018-08-04] MEDS: LORazepam 2 MG TABLET PO PRN ×2 (00:34→07:55)
[2018-08-04] MEDS: MetFORMIN HCL 500 MG TABLET PO SCH (07:04)
[2018-08-04] MEDS: HALOPERIDOL 5 MG TABLET PO PRN (07:55)
[2018-08-04] MEDS: FUROSEMIDE 20 MG TABLET PO SCH (07:55)
[2018-08-04] MEDS: LISINOPRIL 5 MG TABLET PO SCH (07:55)
[2018-08-04] MEDS: CARVEDILOL 12.5 MG TABLET PO SCH (07:55)
[2018-08-04] MEDS: OMEPRAZOLE 20 MG CAPSULE PO SCH (07:55)
[2018-08-04] MEDS ORDERED: FURO20 PO (10:52)
[2018-08-04 12:27] VITALS: BP 149/114
== END 2018-08-04 15:55 | disposition home or self-care (01) | DRG 885 ==
LOC: EMS 00:03 → 3EC 04:07
PROVIDERS: ADMIT Psychiatry & Neurology Psychiatry; ATTEND Psychiatry & Neurology Psychiatry
DX: F25.0 Schizoaffective disorder, bipolar type (principal); R45.851 Suicidal ideations; E78.00 Pure hypercholesterolemia, unspecified; I11.0 Hypertensive heart disease with heart failure; I50.9 Heart failure, unspecified; E03.9 Hypothyroidism, unspecified; R45.87 Impulsiveness; E78.5 Hyperlipidemia, unspecified; E11.9 Type 2 diabetes mellitus without complications; K21.9 Gastro-esophageal reflux disease without esophagitis; D64.9 Anemia, unspecified; F17.200 Nicotine dependence, unspecified, uncomplicated; F41.9 Anxiety disorder, unspecified; F12.90 Cannabis use, unspecified, uncomplicated; Z88.5 Allergy status to narcotic agent; Z98.1 Arthrodesis status; Z91.018 Allergy to other foods; Z71.51 Drug abuse counseling and surveillance of drug abuser; Z88.8 Allergy status to other drugs, medicaments and biological substances; Z91.19 Patient's noncompliance with other medical treatment and regimen; Z79.84 Long term (current) use of oral hypoglycemic drugs
CPT/HCPCS: 83036; 96372; 99291; G0480; J1200; J1630; J2060

== ENCOUNTER 2019-02-18 19:14 | Inpatient (IN) | payer MEDICARE ==
[~2019-02-18] VITALS: Ht 167.6 cm; Wt 93.5 kg
[~2019-02-18 19:14] MED LIST changes: -DOCU-119 PO
[2019-02-18] MEDS ORDERED: HALOPERIDOL LACTATE 5 MG/ML VIAL IM ONE (21:30)
[2019-02-18] MEDS ORDERED: LORazepam 2 MG/ML VIAL IM ONE (21:30)
[2019-02-18 21:39] LABS: BASOPHILS % (AUTO) 1.1 % (0.0-2.0); HEMATOCRIT 37.5 % (41-53); HEMOGLOBIN 12.4 g/dL (13.5-17.5); LYMPHOCYTES # (AUTO) 1.4 K/uL (1.0-4.8); LYMPHOCYTES % (AUTO) 21.8 % (22.0-44.0); MEAN CORPUSCULAR HEMOGLOBIN 30.1 pg (26.0-34.0); MEAN CORPUSCULAR HGB CONC 33.2 G/dL (31.0-37.0); MEAN CORPUSCULAR VOLUME 91 fL (80-100); MONOCYTES # (AUTO) 0.8 K/uL (0.1-1.0); MONOCYTES % (AUTO) 12.5 % (2.0-9.0); NEUTROPHILS % (AUTO) 63.6 % (40.0-70.0); PLATELET COUNT (AUTO) 148 K/uL (150-450); RED BLOOD CELL COUNT(AUTO) 4.13 MIL/uL (4.50-5.90); RED CELL DISTRIBUTION WIDTH 16.9 % (11.5-14.5)
[2019-02-18] MEDS ORDERED: DiphenhydrAMINE HCL 50 MG/ML VIAL IM ONE (21:45)
[2019-02-18 21:54] LABS: ANION GAP 8 mmol/L (8-16); CALCIUM, TOTAL 9.5 mg/dL (8.8-10.5); CARBON DIOXIDE 30 mmol/L (22-29); CHLORIDE 103 mmol/L (98-107); CREATININE 0.95 mg/dL (0.60-1.30); GLOMERULAR FILTR. RATE CALC > 60 mL/min (>60); GLUCOSE,RANDOM 114 mg/dL (70-110); POTASSIUM 3.9 mmol/L (3.5-5.1); SODIUM SERUM 141 mmol/L (136-145); UREA NITROGEN, BLOOD 33 mg/dL (7-18)
[2019-02-18 22:19] LABS: ALANINE AMINOTRANSFERASE 20 U/L (12-78); ALBUMIN 3.6 g/dL (3.4-5.0); ALKALINE PHOSPHATASE 137 U/L (46-116); ASPARTATE AMINOTRANSFERASE 29 U/L (15-37); BILIRUBIN,TOTAL 1.1 mg/dL (0.1-1.0); CREATINE KINASE, TOTAL ONLY 201 U/L (39-308); TOTAL PROTEIN, SERUM 7.1 g/dL (6.4-8.2)
[2019-02-19] MEDS ORDERED: 0.9% SODIUM CHLORIDE 10 ML SYRINGE IVP PRN ×2 (00:15→00:45)
[2019-02-19] MEDS ORDERED: ACETAMINOPHEN 325 MG TABLET PO PRN ×2 (00:15→00:45)
[2019-02-19] MEDS ORDERED: INSULIN LISPRO 100 UNITS/ML SQ PRN (00:45)
[2019-02-19] MEDS ORDERED: DEXTROSE 50%-WATER 25 GM/50 ML SYRINGE IVP PRN (00:45)
[2019-02-19] MEDS ORDERED: ZOLPIDEM TARTRATE 5 MG TABLET PO PRN (00:45)
[2019-02-19] MEDS ORDERED: ONDANSETRON HCL 4 MG/2 ML VIAL IVP PRN (00:45)
[2019-02-19 01:38] LABS: APPEARANCE,URINE CLEAR (CLEAR); GLUCOSE, URINE (UA) NEGATIVE (NEGATIVE); KETONES,URINE NEGATIVE (NEGATIVE); LEUKOCYTE ESTERASE ,URINE NEGATIVE (NEGATIVE); NITRATE,URINE NEGATIVE (NEGATIVE); OCCULT BLOOD,URINE NEGATIVE (NEGATIVE); PROTEIN,URINE SEE CONFIRM (NEGATIVE)
[2019-02-19 01:44] LABS: AMPHET/METH SCREEN,URINE POSITIVE (NEGATIVE); BARBITURATE SCREEN, URINE NEGATIVE (NEGATIVE); BENZODIAZEPINES SCREEN,URINE NEGATIVE (NEGATIVE); CANNABINOID SCREEN,URINE NEGATIVE (NEGATIVE); COCAINE SCREEN,URINE NEGATIVE (NEGATIVE); METHADONE SCREEN, URINE NEGATIVE (NEGATIVE); OPIATE SCREEN,URINE NEGATIVE (NEGATIVE)
[2019-02-19 01:45] LABS: BILIRUBIN,URINE PRELIM. POSITIVE (NEGATIVE); PHENCYCLIDINE SCREEN,URINE NEGATIVE (NEGATIVE)
[2019-02-19 01:49] LABS: BACTERIA,URINE None Seen /HPF (None Seen); RBC,URINE 0-2 /HPF (0-2); SQUAMOUS EPITHELIAL CELL,UR Rare /LPF (None Seen); SULFOSALICYLIC ACID,URINE 1+ (Negative)
[2019-02-19 03:21] LABS: THYROID STIMULATING HORMONE 3.82 uIU/mL (0.36-3.74)
[2019-02-19] MEDS: MetFORMIN HCL 500 MG TABLET PO SCH ×2 (07:34→17:44)
[2019-02-19 07:45] LABS: GLUCOSE,POINT OF CARE 104 MG/DL (70-110)
[2019-02-19] MEDS: ENOXAPARIN SODIUM 40 MG/0.4 ML PF SYRINGE SQ SCH (09:49)
[2019-02-19] MEDS: CARVEDILOL 12.5 MG TABLET PO SCH ×2 (09:49→21:34)
[2019-02-19] MEDS: DOCUSATE SODIUM 100 MG CAPSULE PO SCH ×2 (09:50→21:34)
[2019-02-19] MEDS: LISINOPRIL 5 MG TABLET PO SCH (09:50)
[2019-02-19] MEDS: PANTOPRAZOLE SODIUM 40 MG DR TABLET PO SCH (09:50)
[2019-02-19 11:27] LABS: INR 1.2 (0.9-1.1); PROTHROMBIN TIME 11.8 SEC (9.4-11.6)
[2019-02-19 15:56] VITALS: BP 120/83
[2019-02-19 19:26] VITALS: BP 117/86
[2019-02-19] MEDS: HALOPERIDOL 5 MG TABLET PO SCH (21:34)
[2019-02-19 21:37] LABS: GLUCOMETER DEV NAME(LOC) 5N.2; GLUCOSE,POINT OF CARE 96 MG/DL (70-110)
[2019-02-19 23:37] VITALS: BP 124/80
[2019-02-20 05:00] VITALS: BP 123/71
[2019-02-20 06:56] LABS: GLUCOMETER DEV NAME(LOC) 5N.1; GLUCOSE,POINT OF CARE 90 MG/DL (70-110)
[2019-02-20 06:56] LABS: GLUCOMETER DEV NAME(LOC) 5S.2A; GLUCOSE,POINT OF CARE 116 MG/DL (70-110)
[2019-02-20 07:39] VITALS: BP 134/88
[2019-02-20] MEDS: LISINOPRIL 5 MG TABLET PO SCH (09:28)
[2019-02-20] MEDS: DOCUSATE SODIUM 100 MG CAPSULE PO SCH ×2 (09:28→09:38)
[2019-02-20] MEDS: PANTOPRAZOLE SODIUM 40 MG DR TABLET PO SCH (09:28)
[2019-02-20] MEDS: CARVEDILOL 12.5 MG TABLET PO SCH ×2 (09:28→21:36)
[2019-02-20] MEDS: MetFORMIN HCL 500 MG TABLET PO SCH ×2 (09:28→18:00)
[2019-02-20] MEDS: ENOXAPARIN SODIUM 40 MG/0.4 ML PF SYRINGE SQ SCH ×2 (09:29→09:38)
[2019-02-20 16:15] VITALS: BP 128/91
[2019-02-20] MEDS: HALOPERIDOL 5 MG TABLET PO SCH (21:36)
[2019-02-20 21:40] VITALS: BP 103/61
[2019-02-21 07:21] VITALS: BP 122/62
[2019-02-21] MEDS: LISINOPRIL 5 MG TABLET PO SCH (08:59)
[2019-02-21] MEDS: MetFORMIN HCL 500 MG TABLET PO SCH ×2 (08:59→18:10)
[2019-02-21] MEDS: PANTOPRAZOLE SODIUM 40 MG DR TABLET PO SCH (08:59)
[2019-02-21] MEDS: CARVEDILOL 12.5 MG TABLET PO SCH ×2 (08:59→21:00)
[2019-02-21] MEDS: DOCUSATE SODIUM 100 MG CAPSULE PO SCH ×2 (09:00→21:00)
[2019-02-21 11:49] VITALS: BP 112/72
[2019-02-21] MEDS: ASPIRIN 81 MG CHEWABLE TABLET PO SCH (14:51)
[2019-02-21 16:15] VITALS: BP 128/84
[2019-02-21] MEDS: HALOPERIDOL 10 MG TABLET PO SCH (21:00)
[2019-02-22 06:50] LABS: GLUCOMETER DEV NAME(LOC) 5S.1; GLUCOSE,POINT OF CARE 207 MG/DL (70-110)
[2019-02-22 08:24] VITALS: BP 124/78
[2019-02-22] MEDS: LISINOPRIL 5 MG TABLET PO SCH (08:28)
[2019-02-22] MEDS: CARVEDILOL 12.5 MG TABLET PO SCH ×2 (08:29→19:59)
[2019-02-22] MEDS: MetFORMIN HCL 500 MG TABLET PO SCH ×2 (08:29→17:48)
[2019-02-22] MEDS: ASPIRIN 81 MG CHEWABLE TABLET PO SCH (08:29)
[2019-02-22] MEDS: ENOXAPARIN SODIUM 40 MG/0.4 ML PF SYRINGE SQ SCH (08:30)
[2019-02-22] MEDS: PANTOPRAZOLE SODIUM 40 MG DR TABLET PO SCH (08:30)
[2019-02-22] MEDS: DOCUSATE SODIUM 100 MG CAPSULE PO SCH ×2 (08:30→20:00)
[2019-02-22] MEDS: FUROSEMIDE 20 MG TABLET PO SCH ×2 (11:58→19:59)
[2019-02-22 13:48] VITALS: BP 126/66
[2019-02-22 16:47] LABS: GLUCOMETER DEV NAME(LOC) 5S.1; GLUCOSE,POINT OF CARE 172 MG/DL (70-110)
[2019-02-22 19:36] VITALS: BP 119/55
[2019-02-22] MEDS: HALOPERIDOL 10 MG TABLET PO SCH (20:02)
[2019-02-23 08:30] VITALS: BP 157/116
[2019-02-23] MEDS: PANTOPRAZOLE SODIUM 40 MG DR TABLET PO SCH (09:00)
[2019-02-23] MEDS: DOCUSATE SODIUM 100 MG CAPSULE PO SCH (09:00)
[2019-02-23] MEDS: ENOXAPARIN SODIUM 40 MG/0.4 ML PF SYRINGE SQ SCH (09:00)
[2019-02-23] MEDS: CARVEDILOL 12.5 MG TABLET PO SCH (09:34)
[2019-02-23] MEDS: MetFORMIN HCL 500 MG TABLET PO SCH ×2 (09:34→18:05)
[2019-02-23] MEDS: ASPIRIN 81 MG CHEWABLE TABLET PO SCH (09:35)
[2019-02-23] MEDS: LISINOPRIL 5 MG TABLET PO SCH (09:35)
[2019-02-23] MEDS: FUROSEMIDE 20 MG TABLET PO SCH (09:36)
[2019-02-23 12:14] VITALS: BP 159/108
[2019-02-23 16:03] VITALS: BP 158/103
[2019-02-23] MEDS ORDERED: CloNIDine HCL 0.1 MG TABLET PO PRN (18:30)
[2019-02-23] MEDS ORDERED: CloNIDine HCL 0.1 MG TABLET PO SCH (18:30)
[2019-02-23 18:34] VITALS: BP 155/91
[2019-02-23 19:00] VITALS: BP 152/86
[2019-02-23 20:00] VITALS: BP 136/87
[2019-02-23] MEDS ORDERED: QUEtiapine FUMARATE 300 MG TABLET PO SCH (21:00)
[2019-02-24 11:52] LABS: GLUCOMETER DEV NAME(LOC) 5S.1; GLUCOSE,POINT OF CARE 101 MG/DL (70-110)
== END 2019-02-23 22:09 | DRG 309 ==
LOC: EMS 19:18 → 5S 02-19 13:37 → 5N 02-20 08:17
PROVIDERS: ADMIT Internal Medicine; ATTEND Internal Medicine
DX: I48.0 Paroxysmal atrial fibrillation (principal); F20.0 Paranoid schizophrenia; I50.9 Heart failure, unspecified; F03.90 Unspecified dementia, unspecified severity, without behavioral disturbance, psychotic disturbance, mood disturbance, and anxiety; E78.00 Pure hypercholesterolemia, unspecified; I42.8 Other cardiomyopathies; E11.9 Type 2 diabetes mellitus without complications; I11.0 Hypertensive heart disease with heart failure; F17.210 Nicotine dependence, cigarettes, uncomplicated; F12.90 Cannabis use, unspecified, uncomplicated; F15.10 Other stimulant abuse, uncomplicated; I25.10 Atherosclerotic heart disease of native coronary artery without angina pectoris; E78.5 Hyperlipidemia, unspecified; E03.9 Hypothyroidism, unspecified; Z88.5 Allergy status to narcotic agent; Z91.19 Patient's noncompliance with other medical treatment and regimen; Z88.8 Allergy status to other drugs, medicaments and biological substances; Z83.3 Family history of diabetes mellitus; Z98.1 Arthrodesis status
CPT/HCPCS: 83735; 84439; 84443; 93005; 93306; 96372; G0480; J1630; J1650; J2060

== ENCOUNTER 2019-02-23 20:10 | Inpatient (IN) | payer MEDICARE ==
[~2019-02-23] VITALS: Ht 165.1 cm; Wt 89.8 kg
[2019-02-23 20:10] VITALS: BP 151/112
[2019-02-23] MEDS ORDERED: ZOLPIDEM TARTRATE 10 MG TABLET PO PRN (22:45)
[2019-02-23] MEDS ORDERED: HALOPERIDOL 5 MG TABLET PO PRN (22:45)
[2019-02-23] MEDS ORDERED: LORazepam 2 MG TABLET PO PRN (22:45)
[2019-02-23] MEDS ORDERED: DEXTROSE 50%-WATER 25 GM/50 ML SYRINGE IVP PRN (23:00)
[2019-02-23] MEDS ORDERED: INSULIN LISPRO 100 UNITS/ML SQ PRN (23:00)
[2019-02-24 05:44] LABS: GLUCOMETER DEV NAME(LOC) 3EX.; GLUCOSE,POINT OF CARE 122 MG/DL (70-110)
[2019-02-24] MEDS ORDERED: ALBUTEROL SULFATE 2.5 MG/0.5 ML NEB SOLUTION NEB PRN (06:00)
[2019-02-24] MEDS ORDERED: FUROSEMIDE 20 MG TABLET PO ONE (06:15)
[2019-02-24 06:57] VITALS: BP 137/98
[2019-02-24] MEDS: MetFORMIN HCL 500 MG TABLET PO SCH ×2 (07:09→17:48)
[2019-02-24] MEDS: FUROSEMIDE 20 MG TABLET PO SCH ×2 (08:47→17:47)
[2019-02-24 09:56] VITALS: BP 138/72
[2019-02-24] MEDS: CARVEDILOL 12.5 MG TABLET PO SCH ×2 (10:45→17:48)
[2019-02-24] MEDS: ASPIRIN 81 MG CHEWABLE TABLET PO SCH (10:46)
[2019-02-24] MEDS: LISINOPRIL 5 MG TABLET PO SCH (10:47)
[2019-02-24] MEDS: QUEtiapine FUMARATE 300 MG TABLET PO SCH ×2 (11:28→17:48)
[2019-02-24] MEDS ORDERED: ALBUTEROL SULFATE HFA 90 MCG/PUFF 8 GM INHALER IH PRN (13:30)
[2019-02-24] MEDS ORDERED: ONDANSETRON HCL 4 MG TABLET PO PRN (13:30)
[2019-02-24] MEDS ORDERED: LOPERAMIDE HCL 2 MG CAPSULE PO PRN (13:30)
[2019-02-24] MEDS ORDERED: ACETAMINOPHEN 325 MG TABLET PO PRN (13:30)
[2019-02-24] MEDS ORDERED: NICOTINE 14 MG/24 HOUR PATCH TD PRN (13:30)
[2019-02-24] MEDS ORDERED: PETROLATUM,WHITE 28 GM JELLY TP PRN (13:30)
[2019-02-24] MEDS ORDERED: MAGNESIUM HYDROXIDE SUSPENSION 30 ML UDCUP PO PRN (13:30)
[2019-02-24] MEDS ORDERED: IBUPROFEN 400 MG TABLET PO PRN (13:30)
[2019-02-24] MEDS ORDERED: DOCUSATE SODIUM 100 MG CAPSULE PO PRN (13:30)
[2019-02-24] MEDS ORDERED: CloNIDine HCL 0.1 MG TABLET PO PRN (13:30)
[2019-02-24] MEDS ORDERED: MAG HYDROX/AL HYDROX/SIMETH ES 30 ML SUSPENSION UDCUP PO PRN (13:30)
[2019-02-24] MEDS ORDERED: GuaiFENesin/D-METHORPHAN [SUGAR-FREE] 200-20MG/10 ML SYRUP UDCUP PO PRN (13:30)
[2019-02-24 16:51] VITALS: BP 134/89
[2019-02-25 05:25] LABS: GLUCOMETER DEV NAME(LOC) 3EX.; GLUCOSE,POINT OF CARE 109 MG/DL (70-110)
[2019-02-25 05:50] VITALS: BP 147/99
[2019-02-25] MEDS: MetFORMIN HCL 500 MG TABLET PO SCH ×2 (06:47→17:03)
[2019-02-25] MEDS: LISINOPRIL 5 MG TABLET PO SCH (08:03)
[2019-02-25] MEDS: QUEtiapine FUMARATE 300 MG TABLET PO SCH ×2 (08:03→17:03)
[2019-02-25] MEDS: CARVEDILOL 12.5 MG TABLET PO SCH ×2 (08:04→17:03)
[2019-02-25] MEDS: ASPIRIN 81 MG CHEWABLE TABLET PO SCH (08:04)
[2019-02-25] MEDS: FUROSEMIDE 20 MG TABLET PO SCH ×2 (08:04→17:03)
[2019-02-25 09:28] VITALS: BP 138/66
[2019-02-25 10:26] LABS: GLUCOMETER DEV NAME(LOC) 3EX.; GLUCOSE,POINT OF CARE 143 MG/DL (70-110)
[2019-02-25 18:01] VITALS: BP 130/67
[2019-02-25 20:54] LABS: GLUCOMETER DEV NAME(LOC) 3EX.; GLUCOSE,POINT OF CARE 128 MG/DL (70-110)
[2019-02-26 06:15] VITALS: BP 152/88
[2019-02-26] MEDS: MetFORMIN HCL 500 MG TABLET PO SCH ×2 (06:47→17:25)
[2019-02-26 08:00] VITALS: BP 131/105
[2019-02-26] MEDS: ASPIRIN 81 MG CHEWABLE TABLET PO SCH (08:19)
[2019-02-26] MEDS: FUROSEMIDE 20 MG TABLET PO SCH ×2 (08:20→17:17)
[2019-02-26] MEDS: LISINOPRIL 5 MG TABLET PO SCH (08:20)
[2019-02-26] MEDS: CARVEDILOL 12.5 MG TABLET PO SCH ×2 (08:20→17:17)
[2019-02-26] MEDS: QUEtiapine FUMARATE 300 MG TABLET PO SCH ×2 (08:20→17:17)
[2019-02-26 17:28] VITALS: BP 136/87
[2019-02-27 05:41] LABS: GLUCOMETER DEV NAME(LOC) 3EX.; GLUCOSE,POINT OF CARE 96 MG/DL (70-110)
[2019-02-27] MEDS: MetFORMIN HCL 500 MG TABLET PO SCH ×2 (07:31→16:48)
[2019-02-27 08:00] VITALS: BP 132/90
[2019-02-27] MEDS: ASPIRIN 81 MG CHEWABLE TABLET PO SCH (08:48)
[2019-02-27] MEDS: QUEtiapine FUMARATE 300 MG TABLET PO SCH ×2 (08:48→16:48)
[2019-02-27] MEDS: FUROSEMIDE 20 MG TABLET PO SCH ×2 (08:49→16:48)
[2019-02-27] MEDS: LISINOPRIL 5 MG TABLET PO SCH (08:49)
[2019-02-27] MEDS: CARVEDILOL 12.5 MG TABLET PO SCH ×2 (08:49→16:48)
[2019-02-27 11:56] LABS: GLUCOMETER DEV NAME(LOC) 3E.I; GLUCOSE,POINT OF CARE 143 MG/DL (70-110)
[2019-02-27 16:00] VITALS: BP 149/68
[2019-02-27 16:58] LABS: GLUCOMETER DEV NAME(LOC) 3E.I; GLUCOSE,POINT OF CARE 131 MG/DL (70-110)
[2019-02-27 21:19] LABS: GLUCOMETER DEV NAME(LOC) 3E.I; GLUCOSE,POINT OF CARE 119 MG/DL (70-110)
[2019-02-28 06:21] LABS: GLUCOMETER DEV NAME(LOC) 3E.I; GLUCOSE,POINT OF CARE 113 MG/DL (70-110)
[2019-02-28] MEDS: MetFORMIN HCL 500 MG TABLET PO SCH ×2 (06:57→17:56)
[2019-02-28 08:45] VITALS: BP 152/99
[2019-02-28] MEDS: FUROSEMIDE 20 MG TABLET PO SCH ×2 (09:06→17:56)
[2019-02-28] MEDS: CARVEDILOL 12.5 MG TABLET PO SCH ×2 (09:07→17:56)
[2019-02-28] MEDS: LISINOPRIL 5 MG TABLET PO SCH (09:07)
[2019-02-28] MEDS: ASPIRIN 81 MG CHEWABLE TABLET PO SCH (09:07)
[2019-02-28] MEDS: QUEtiapine FUMARATE 300 MG TABLET PO SCH ×2 (09:07→17:56)
[2019-02-28 18:11] VITALS: BP 136/81
[2019-03-01 06:04] LABS: GLUCOMETER DEV NAME(LOC) 3EX.; GLUCOSE,POINT OF CARE 106 MG/DL (70-110)
[2019-03-01] MEDS: MetFORMIN HCL 500 MG TABLET PO SCH ×2 (07:10→17:20)
[2019-03-01 08:39] VITALS: BP 147/99
[2019-03-01] MEDS: ASPIRIN 81 MG CHEWABLE TABLET PO SCH (09:04)
[2019-03-01] MEDS: LISINOPRIL 5 MG TABLET PO SCH (09:04)
[2019-03-01] MEDS: FUROSEMIDE 20 MG TABLET PO SCH ×2 (09:05→17:20)
[2019-03-01] MEDS: CARVEDILOL 12.5 MG TABLET PO SCH ×2 (09:05→17:19)
[2019-03-01] MEDS: QUEtiapine FUMARATE 300 MG TABLET PO SCH ×2 (09:05→17:20)
[2019-03-01 11:25] LABS: GLUCOMETER DEV NAME(LOC) 3E.I; GLUCOSE,POINT OF CARE 156 MG/DL (70-110)
[2019-03-01 14:00] LABS: GLUCOMETER DEV NAME(LOC) 3EX.; GLUCOSE,POINT OF CARE 122 MG/DL (70-110)
[2019-03-01] MEDS ORDERED: QUET200T PO (14:19)
[2019-03-01] MEDS ORDERED: ASPI81TA39 PO (14:22)
[2019-03-01 17:37] LABS: GLUCOMETER DEV NAME(LOC) 3E.I; GLUCOSE,POINT OF CARE 111 MG/DL (70-110)
== END 2019-03-01 18:45 | disposition home or self-care (01) | DRG 885 ==
LOC: 3EX 20:10
PROVIDERS: ADMIT Psychiatry & Neurology Psychiatry; ATTEND Psychiatry & Neurology Psychiatry
DX: F20.0 Paranoid schizophrenia (principal); I11.0 Hypertensive heart disease with heart failure; E11.9 Type 2 diabetes mellitus without complications; E78.5 Hyperlipidemia, unspecified; G47.33 Obstructive sleep apnea (adult) (pediatric); I50.9 Heart failure, unspecified; J44.9 Chronic obstructive pulmonary disease, unspecified; K21.9 Gastro-esophageal reflux disease without esophagitis; Z79.899 Other long term (current) drug therapy; Z98.1 Arthrodesis status
CPT/HCPCS: 87081; G0378